=== PATIENT | male | born 1985 | race Caucasian/White ===

== ENCOUNTER → 2016-11-05 | Outpatient (CLI) | payer BC ==
[~2016-11-05] MED LIST: ATOR-22 PO; HYDR-5688 PO; IBUP-103 PO; INSU1.2I SQ; INSU100I17 SC; INSU100I2 SC; INSU1INJ7 SC; OXYC-57 PO; PRED20TA PO
[2016-11-05 17:41] LABS: HEMATOCRIT 45.5 % (42-52)
[2016-11-05 18:14] LABS: ALT/SGPT 25 U/L (12-78); BLOOD UREA NITROGEN 10 mg/dl (7-18); BUN/CREATININE RATIO 11.6 (10-20); CALCIUM 9.5 mg/dl (8.5-10.1); CARBON DIOXIDE 30 mmol/L (21-32); CHLORIDE 103 mmol/L (98-107); CHOLESTEROL 258 mg/dl (0-200); CREATININE 0.89 mg/dl (0.60-1.40); GLUCOSE 117 mg/dl (70-99); POTASSIUM 3.6 mmol/L (3.5-5.1); SODIUM 142 mmol/L (136-145)
[2016-11-05 18:23] LABS: RATIO 28.6 mcg/mg (0-30.0)
[2016-11-05 18:25] LABS: ALKALINE PHOSPHATASE 113 U/L (45-117); AST/SGOT 18 U/L (15-37); CHOLESTEROL/HDL RATIO 4.6; HDL CHOLESTEROL 56 mg/dl; LDL CHOLESTEROL CALCULATED 131 mg/dl; TRIGLYCERIDES 355 mg/dl (0-150); VERY LOW DENSITY LIPOPROT CALC 71 mg/dl
[2016-11-06 06:01] LABS: ESTIMATED AVERAGE GLUCOSE 229 mg/dl; HA1C FLAG Normal (Normal)
== END | disposition home or self-care (01) ==
LOC: C.LAB1850 17:23
PROVIDERS: ATTEND Nurse Practitioner Family
DX: E10.39 Type 1 diabetes mellitus with other diabetic ophthalmic complication (principal)

== ENCOUNTER 2016-11-14 13:48 | Emergency (ER) | payer BC, OTHER ==
[~2016-11-14] VITALS: Ht 185.4 cm; Wt 122.0 kg
[~2016-11-14 13:48] MED LIST changes: -ATOR-22 PO; -HYDR-5688 PO; -IBUP-103 PO; -INSU1.2I SQ; -INSU100I2 SC; -OXYC-57 PO; -PRED20TA PO
[2016-11-14 13:50] VITALS: BP 158/98; PULSE 110; TEMP 36.8; O2SAT 99; Ht 185.4 cm; Wt 122.0 kg
[2016-11-14] MEDS ORDERED: IBUP-103 PO (14:32)
[2016-11-14] MEDS ORDERED: OXYC-57 PO (15:11)
--- NOTE | 2016-11-15 10:51 | EMERGENCY ROOM VISIT NOTE ---
ED Visit Note First contact with patient: 14:02 Chief Complaint: Lower back pain. History of Present Illness: Mr. Dominguez is a 31-year-old white male who ambulates into the ED accompanied by his complaining of lumbar back. Historically patient reports he's had previous lumbar disc disease. Was most severe approximately 3-4 years ago and he received multiple injections of steroids and had resolution of his symptoms. He reports he was told that his disc disease was mild and that surgery was not indicated at that time. Patient reports approximately 2-3 hours before he arrived in the emergency department patient reports he was bending over to put on his shoes, felt a popping sensation in his lower back and since that time he has been having severe pain. Currently he describes the pain as a sharp and grabbing sensation. He places the majority of his discomfort in the L2 L4 area. He reports there is minimal radiation to the top of the buttocks bilaterally but slightly more pronounced in the right. He rates his discomfort 9/10. His pain worsens with all movements of the back and minimally with palpation. He has not identified any alleviating factors related to the pain. He has not taken any medications for pain prior to arrival at the hospital. He denies any associated symptoms including fevers, chills, sweats, upper respiratory tract symptoms, shortness of breath, cervical and thoracic back pain, flank pain, abdominal pain, nausea, vomiting, diarrhea, constipation, rectal bleeding, black/tarry stools, urinary symptoms, hematuria, bowel and bladder dysfunction, genital/rectal paresthesias , lower extremity weakness/numbness/tingling. Review of Systems: As noted above in history of present illness. All body systems were reviewed and found to be negative as noted above. Past Medical History: As previously noted, diabetes. Current Medications: Insulin, ibuprofen. Allergies to Medications: Patient denies. Social History: Patient is currently employed; he lives with his and feels safe in his home environment; he denies tobacco and alcohol use. Physical Examination: Vital Signs: Date Time Temp Pulse Resp B/P Pulse Ox O2 Delivery O2 Flow Rate FiO2 11/14/16 13:50 36.8 110 18 158/98 99 Room Air GENERAL: 31-year-old male in moderate distress due to pain, nontoxic-appearing, afebrile and hemodynamically stable. NEUROLOGICAL: Awake, alert and oriented to person, place and time. Answering questions appropriately and following commands. Normal gait. Good hand eye coordination. No focal motor sensory deficits. SKIN: Warm, dry and pink. No soft tissue eruptions or trauma noted. HEENT: Atraumatic and normocephalic. BACK: No tenderness over the bony cervical and thoracic spine. Moderate tenderness over the L2 to L4 area with prominence in the right paraspinous musculature but no palpable spasm. Decreased range of motion in all movements due to pain. Negative straight leg raise test. No CVA tenderness. THORAX: Lungs sounds are clear to auscultation and equal bilaterally with symmetrical chest wall. ABDOMEN: Flat, soft and nontender. Positive bowel sounds in all quadrants. No guarding, rigidity or organomegaly. EXTREMITIES: Moves all extremities well on command and with purpose. All distal neurovascular statuses are intact and equal bilaterally. 4/5 muscle strength in hip flexion, extension, abduction and abduction, knee flexion and extension and ankle plantar flexion and dorsiflexion. 2+ patellar and Achilles tendon reflexes intact and equal bilaterally. Able to distinguish light sensations through all dermatomes of the lower legs and feet. ED Course: Patient is assessed as noted above. Patient was educated about today's findings and instructed on his plan; he verbalizes understanding and agreement with this plan. Clinical Impression: Acute lumbar back pain. Disposition: Patient discharged home in stable condition accompanied by his ; prior to departure he was reassessed and subjectively reported he was feeling better and rated his discomfort 5/10. Plan: Comfort measures were discussed with the patient including rest, avoiding heavy lifting, ice/heat and a sliding pain medication scale of ibuprofen, acetaminophen and/or Percocet. Patient was signed off of work for 2-3 days. Patient was encouraged to follow-up with his back specialist or family physician for recheck. Patient was encouraged return ED for worsening pain, fevers, lower extremity weakness/numbness/tingling, rectal/genital paresthesias, bowel and bladder dysfunction or any new/concerning symptoms.
[2017-03-18] MEDS ORDERED: INSU1.2I SQ (14:32)
== END 2016-11-14 15:19 | disposition home or self-care (01) ==
LOC: C.EDB 13:50 → C.EDD 15:19
DX: M54.5 Low back pain (principal); E11.9 Type 2 diabetes mellitus without complications; Z79.4 Long term (current) use of insulin

== ENCOUNTER 2017-03-18 17:17 | Emergency (ER) | payer BC, OTHER ==
[~2017-03-18] VITALS: Ht 182.9 cm; Wt 113.6 kg
[~2017-03-18 17:17] MED LIST changes: +IBUP-103 PO; +INSU1.2I SQ; -INSU1INJ7 SC; +OXYC-57 PO
[2017-03-18 17:20] VITALS: TEMP 36.6; Ht 182.9 cm; Wt 113.6 kg
[2017-03-18] MEDS ORDERED: ATOR-22 PO (17:44)
[2017-03-18] MEDS ORDERED: INSU100I2 SC (17:44)
[2017-03-18] MEDS ORDERED: MoRPHine SULFATE 10 MG/ML CARP/VIAL IM STA (17:51)
[2017-03-18] MEDS ORDERED: DEXAMETHASONE SOD INJ 4 MG/ML VIAL IM ONE (18:00)
[2017-03-18] MEDS ORDERED: HYDR-5688 PO (18:10)
[2017-03-18] MEDS ORDERED: PRED20TA PO (18:10)
--- NOTE | 2017-03-18 18:12 | EMERGENCY ROOM VISIT NOTE ---
ED Visit Note First contact with patient: 17:32 CHIEF COMPLAINT: Low back pain HISTORY OF PRESENT ILLNESS: This 31-year-old male patient presents to the emergency department ambulatory complaining of pain in the low back which began 5 days ago. The patient states that he does have a history of low back problems. A few years ago, he had an MRI which showed a bulging disc at L4 to L5. He saw Dr. Vu, who gave him a steroid injection which gave him excellent pain relief. He has been having some mild pain over the past several months but states that he bent over on and had an acute onset of severe pain. The pain was gradual in onset, is now constant and worse with movement. The patient notes the pain as achy and a 9/10. The pain radiates slightly into the left leg. The patient has taken ibuprofen and has been resting without relief of the pain. The patient denies any loss of control of their bowel or bladder functions. There has been no leg numbness or weakness, and no change in sensation. No nausea or vomiting or abdominal pain. No chest pain or shortness of breath. No dysuria or increased urinary frequency. REVIEW OF SYSTEMS: A review of systems was performed with positives and pertinent negatives listed in the history of present illness. All other systems were reviewed and are negative. ALLERGIES: No known drug allergies MEDICATIONS: Lipitor, insulin PMH: Type 1 diabetes SOCIAL HISTORY: Patient lives locally with family. Nonsmoker, denies alcohol use. PHYSICAL EXAM: VITALS: Vitals are noted on the nurse's note and reviewed by myself. Vital signs stable. GENERAL: This is a 31-year-old male, in no acute distress, nondiaphoretic, well- developed well-nourished. SKIN: The skin was without rashes, erythema, edema, or bruising. Capillary refill less than 2 seconds. NECK: Supple without nuchal rigidity. No cervical spine tenderness. No paraspinous muscle tenderness. HEART: Regular rate and rhythm without murmurs gallops or rubs. LUNGS: Clear to auscultation bilaterally without wheezes, rales or rhonchi. ABDOMEN: Positive bowel sounds x 4. Soft, nontender, without masses or organomegaly. MUSCULOSKELETAL: No muscle atrophy, erythema, or edema noted of the back. There is no tenderness over the lumbar spinous processes. There is tenderness over the left lumbar paraspinous muscles. There is no tenderness over the thoracic spine or paraspinous muscles. There are no muscle spasms present. The patient is slow to move around with maximum tenderness with flexion. Negative straight leg raise test. NEURO: Patient was alert and oriented to person place and time. Normal sensation to light and sharp touch. Deep tendon reflexes 2+ in the lower extremities. Dorsalis pedis pulse 2+ bilaterally. Strength 5/5 and equal in the bilateral lower extremities. EMERGENCY DEPARTMENT COURSE: The patient was evaluated as above. He has a history of back pain and has had an MRI in the past which showed disc herniation at L4 to L5. The patient has no symptoms concerning for cauda equina syndrome or cord compression. There is no evidence of infection or malignancy. I do not feel any further imaging is indicated at this time. The patient was given 10 mg Decadron IM and 10 mg morphine IM. He will be placed on a prednisone taper and given a short course of pain medication. [facility] and no red flags were identified. The patient has a follow-up appointment with pain management in 2 months. I did recommend that he call and see if he can get an earlier appointment. He verbalized his understanding of my assessment and treatment plan and was discharged home in good condition with his driving. DIAGNOSIS: Left lumbar back pain Problem List Medical Problems: (1) Diabetes Status: Chronic (2) Hypoglycemia associated with type 2 diabetes mellitus Status: Resolved (3) TIA (transient ischemic attack) Status: Resolved Current/Historical Medications Scheduled Atorvastatin (Lipitor), 20 MG PO DAILY Insulin Glargine (Toujeo Solostar), 40 UNIT SQ HS Insulin Lispro (Human) (Humalog Kwikpen), 1 DOSE SC ACHS Allergies Coded Allergies: No Known Allergies (Unverified , 06/06/15) Vital Signs Date Time Temp Pulse Resp B/P Pulse Ox O2 Delivery O2 Flow Rate FiO2 03/18/17 17:20 36.6 109 18 146/85 98 Room Air Departure Information Impression Primary Impression: Left lumbar pain Dispostion Home / Self-Care Condition GOOD Prescriptions Hydrocodone/Acetaminophen 5MG/325MG ([place] 5MG/325MG) Tab 1-2 TABLET PO Q4H Y for Pain, #10 TAB For Initial Treatment Prov: Lolly Covarrubias ., GALINDO 03/18/17 Prednisone (Prednisone) 20 Mg Tab 0 PO DAILY, #18 TAB 3 DAILY FOR 3 DAYS, THEN 2 DAILY FOR 3 DAYS, THEN 1 DAILY FOR 3 DAYS. Prov: Lolly Covarrubias .GALINDO 03/18/17 Referrals Chadwick Bustamante M.D. (PCP) Patient Instructions My [facility] Additional Instructions You have been treated in the Emergency Department for Back Pain. You have received pain medicine in the emergency department which impairs your ability to operate a vehicle. It is illegal for you to drive after receiving these medicines. You have been prescribed [place] to be used for pain control. This is a narcotic medication. You cannot drive or consume alcohol while on this medicine. This medicine should only be used for pain that cannot be controlled with over-the- counter pain medicines. Prednisone as prescribed. Start this medication tomorrow morning. You may want to take this in the morning, as it can make it difficult to sleep. For pain control, you can use the following [id number] medicines (if >12 yo): - Regular strength (325mg/tab) Tylenol (acetaminophen) 2 tabs every 4-6 hours as needed. Do not exceed 12 tablets in a 24 hour period. Avoid taking more than 4 grams (4000 mg) of Tylenol per day. This includes any other sources of acetaminophen you may take on a regular basis. - Regular strength (200 mg/tab) Advil (ibuprofen) 1-2 tabs every 4-6 hours as needed. Do not exceed a dose of 3200 mg per day. If this is an acute injury, ice can be applied to the area of pain for the first 3 days to help decrease pain and inflammation. After the first 3 days, a heating pad can be used over the area for continued soothing relief. Call Dr. Vu for follow up. You may also follow up with your primary care provider. Return to the Emergency Department if your current symptoms worsen despite treatment course outlined above, or if you develop any of the following symptoms : intractable pain despite aforementioned treatment course, loss of control of your bowel or bladder, numbness or tingling in your groin, or development of a fever. Problem Qualifiers Primary Impression: Left lumbar pain Chronicity: acute Sciatica presence: with sciatica Sciatica laterality: sciatica of left side Qualified Codes: M54.42 - Lumbago with sciatica, left side
[2017-03-18 18:22] VITALS: BP 131/87; PULSE 75; O2SAT 99
== END 2017-03-18 18:23 | disposition home or self-care (01) ==
LOC: C.EDB 17:18 → C.EDD 18:23
DX: M54.42 Lumbago with sciatica, left side (principal); M51.26 Other intervertebral disc displacement, lumbar region; E10.9 Type 1 diabetes mellitus without complications; Z79.4 Long term (current) use of insulin; Z86.73 Personal history of transient ischemic attack (TIA), and cerebral infarction without residual deficits

== ENCOUNTER → 2017-07-03 | Day surgery (SDC) | payer BC ==
[2017-06-09 07:54] VITALS: Ht 182.9 cm; Wt 122.7 kg
[~2017-07-03] VITALS: Ht 182.9 cm; Wt 122.7 kg
[~2017-07-03] MED LIST changes: +ATOR-22 PO; -IBUP-103 PO; -INSU100I17 SC; +INSU100I2 SC; +IOPAMIDOL INJ 61% 15 ML VIAL ONE; +LIDOCAINE HCL 1% MPF 5 ML VIAL ONE; -OXYC-57 PO; +SODIUM CHLORIDE 0.9% INJ 10 ML VIAL ONE
--- NOTE | 2017-07-03 12:48 | History & Physical Bridge - SC ---
H&P Re-Evaluation Bridge Note: I have examined the patient, reviewed the History & Physical and in the interval since the performance of the History & Physical I have noted the following changes of clinical significance: No changes noted
[2017-07-03 13:12] VITALS: TEMP 36.9
--- NOTE | 2017-07-03 13:17 | Discharge Instructions ---
Discharge Instructions Date of Service Jul 03, 2017. Visit Reason for Visit: Lumbar Radiculopathy Discharge Discharge Diagnosis / Problem: left leg pain Discharge Goals Goal(s): Decrease discomfort, Improve function Activity Recommendations Activity Limitations: resume your previous activity Anesthesia . Post Anesthesia Instructions: If you have had General Anesthesia or IV Sedation: * Do not drive today. * Resume driving when surgeon permits. * Do not make important decisions or sign legal documents today. * Call surgeon for: 1. Temperature elevations greater than 101 degrees F. 2. Uncontrollable pain. 3. Excessive bleeding. 4. Persistent nausea and vomiting. 5. Medication intolerance (nausea, vomiting or rash). * For nausea and vomiting use only clear liquids such as: tea, soda, bouillon until nausea subsides, then gradually increase diet as tolerated. * If you have any concerns or questions, call your surgeon's office. If physician is unavailable and it is an emergency, call 911 or go to the nearest emergency room. . Diet Recommendations Recommended Home Diet: resume previous diet Procedures Procedures Performed: LUMBAR EPIDURAL STEROID INJECTION Pending Studies Studies pending at discharge: no Medical Emergencies . Who to Call and When: Medical Emergencies: If at any time you feel your situation is an emergency, please call 911 immediately. . Non-Emergent Contact Non-Emergency issues call your: Specialist . . "Provider Documentation" section prepared by Karl Vu. .
[2017-07-03 13:19] VITALS: BP 147/90; PULSE 93; O2SAT 98
--- NOTE | 2017-07-03 14:08 | OPERATIVE REPORT ---
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 POSTOPERATIVE DIAGNOSIS: Same. PROCEDURE: Left paramedian L5-S1 intralaminar epidural steroid injection under fluoroscopic guidance. SURGEON: Dr. Karl Vu. INDICATIONS: The patient is a 32-year-old white male who underwent a series of 2 epidural steroid injections 4 years ago for radicular complaints. He has done well up until just recently when he began having recurrence. He presents today for an epidural injection as he is having increasing pain down the left lower extremity and had previously had a nice response historically to an epidural injection. PHYSICAL EXAMINATION: GENERAL: Pleasant male seated comfortably in no apparent distress. MUSCULOSKELETAL EXAMINATION: Sensitivity to palpation of lumbar paraspinal muscles on the left side. Sciatic notch sensitivity on the left, extreme limitations with forward flexion. Positive straight leg raise with pain inhibition in the left lower extremity, intact sensation. CONSENT: Verbal and written consent was obtained from the patient. Risks and benefits were reviewed. Risks include but are not limited to abscess, allergic reaction and dural spinal headache. The patient wishes to proceed. PROCEDURE: The patient was taken back to the special procedures room of the [facility] where he was maintained in a prone position. Backside was cleansed with Betadine x3 and a dry sterile dressing was applied. Fluoroscope was used to identify the L5-S1 intralaminar space and overlying skin on the left side was anesthetized with 4 mL of lidocaine 1% with a 25 gauge 1.5-inch needle. A 22-gauge 3-1/2 inch Tuohy needle was then directed down towards the intralaminar space. It was advanced under lateral fluoroscopic guidance and loss of resistance was noted at a depth of 8.5 cm. Isovue-300 contrast 1 mL was injected in which demonstrated epidural uptake pattern. He then underwent injection after negative aspiration of 40 mg of Depo-Medrol and 4 mL of preservative free sodium chloride. Injection was well tolerated. DISPOSITION: 1. The patient is taken out into the discharge recovery area where he will be discharged home once discharge criteria have been met. 2. Follow up in the [facility] office in 2-4 weeks. I attest to the content of the Intraoperative Record and any orders documented therein. Any exception s are noted below.
== END | disposition home or self-care (01) ==
LOC: X.SURG 12:04
PROVIDERS: ATTEND Physical Medicine & Rehabilitation
DX: M54.18 Radiculopathy, sacral and sacrococcygeal region (principal); E11.9 Type 2 diabetes mellitus without complications; E78.5 Hyperlipidemia, unspecified; Z79.4 Long term (current) use of insulin; Z82.49 Family history of ischemic heart disease and other diseases of the circulatory system; Z83.3 Family history of diabetes mellitus

== ENCOUNTER 2018-01-23 07:43 | Emergency (ER) | payer BC, OTHER ==
[~2018-01-23] VITALS: Ht 175.3 cm; Wt 121.0 kg
[~2018-01-23 07:43] MED LIST changes: -IOPAMIDOL INJ 61% 15 ML VIAL ONE; -LIDOCAINE HCL 1% MPF 5 ML VIAL ONE; -SODIUM CHLORIDE 0.9% INJ 10 ML VIAL ONE
[2018-01-23 07:45] VITALS: Ht 175.3 cm; Wt 121.0 kg
[2018-01-23] MEDS ORDERED: SODIUM CHLORIDE 0.9% 1000ML 1,000 ML IV STA (08:00)
--- NOTE | 2018-01-23 08:06 | EMERGENCY ROOM VISIT NOTE ---
History First contact with patient: 07:53 Chief Complaint: BACK PAIN Stated Complaint: LOWER BACK PAIN/ RIGHT SIDE History of Present Illness The patient is a 32 year old male who presents to the Emergency Room via private vehicle accompanied by female with complaints of "lower back pain/right side". The patient states that he woke this morning around 03 30 with abrupt onset of right flank pain. He rates the overall pain currently as a 7/10 but notes at times it will be more severe. He has never had pain like this before. He states that he does have a history of herniated disks at L4-L5 which she was diagnosed with 5-7 years ago. He states that he follows with Dr. Vu and had last received an injection this past summer. This was his third overall injection. He states that the pain is now persistent on the right and is slightly nauseous and has diarrhea but notes this began on Friday and appears to be unrelated. The only episode of incontinence via stool was on Friday when the diarrhea was severe which is now diminishing. He denies any abdominal pain , dysuria, lower extremity weakness, bowel or bladder incontinence today, or numbness or tingling in the genital region. In regard to location of pain he points to the right flank at the right posterior inferior rib cage region. Review of Systems A complete 10-point Review of Systems was discussed with the patient, with pertinent positives and negatives listed in the History of Present Illness. All remaining Review of Systems questions can be considered negative unless otherwise specified. Past Medical/Surgical History Medical Problems: (1) Diabetes (2) Hypoglycemia associated with type 2 diabetes mellitus (3) TIA (transient ischemic attack) Family History Diabetes mellitus Social History Smoking Status: Never Smoker Marital Status: Housing Status: lives with family Occupation Status: employed Current/Historical Medications Scheduled Atorvastatin (Lipitor), 20 MG PO HS Insulin Aspart (Novolog), UNITS SQ UD Insulin Degludec (Tresiba Flextouch), 40 UNITS SQ HS Scheduled PRN Oxycodone Ir (Roxicodone Ir), 1-2 TAB PO Q4H PRN for Pain Physical Exam Vital Signs Date Time Temp Pulse Resp B/P (MAP) Pulse Ox O2 Delivery O2 Flow Rate FiO2 01/23/18 10:18 36.5 81 18 170/112 99 01/23/18 09:36 164/95 01/23/18 09:33 81 18 186/116 99 Room Air 01/23/18 07:45 36.5 86 18 162/101 98 Room Air Physical Exam VITAL SIGNS - Vital signs and nursing notes were reviewed. Stable. GENERAL - 32-year-old male appearing his stated age who is in no acute distress. Communicates well with provider and answers questions appropriately. SKIN - Without rashes. No meningeal or petechial rash. HEAD - NC/AT. EYES - PERRL with EOMI bilaterally. Sclera anicteric. EARS - No deformities of external structures noted on gross examination bilaterally. NOSE - Midline and without cyanosis. No epistaxis or purulent drainage noted. MOUTH/OROPHARYNX - Without perioral cyanosis. NECK - Neck with FROM. LUNGS - Chest wall symmetric without accessory muscle use, intercostals retractions, or central cyanosis. Normal vesicular breath sounds CTA B/L. No wheezes, rales, or rhonchi appreciated. CARDIAC - RRR with S1/S2. No murmur, rubs, or gallops appreciated. ABDOMEN - Abdominal contour normal without pulsations or visible masses. BS normoactive all four quadrants. No tenderness, palpable masses, hepatosplenomegaly, or ascites noted. MUSCULOSKELETAL: There is tenderness to palpation/CVA tenderness of the right flank. EXTREMITIES - No clubbing or peripheral cyanosis. No pretibial edema present. + 5/5 strength noted in UE/LE bilaterally. NEUROLOGIC - Cranial nerves II through XII grossly intact. Sensory intact to light touch throughout. PSYCH - A&O, and cooperates fully with examiner. Pt is very pleasant and interacts well with examiner. Medical Decision & Procedures ER Provider Diagnostic Interpretation: ABDOMEN AND PELVIS CT WITHOUT CONTRAST CT DOSE: 8.85 mGy.cm HISTORY: abrupt onset of R flank pain TECHNIQUE: Multiaxial CT images of the abdomen and pelvis were performed without the use of intravenous and oral contrast according to the standard department stone protocol. A dose lowering technique was utilized adhering to the principles of ALARA. COMPARISON STUDY: Abdomen and pelvis CT 01/20/2012. FINDINGS: The lung bases are clear. No pneumoperitoneum. No pneumatosis. No fractures within the visualized osseous structures. The unenhanced liver, spleen, adrenal glands, gallbladder, and pancreas are unremarkable. Multiple bilateral renal calculi. The largest is seen within the lower pole of the left kidney and measures 5 mm. There is a 1 mm stone either within or just beyond the right ureterovesical junction best seen on image 194. This results in mild right hydroureteronephrosis. There is also mild right perinephric and periureteral edema which is likely reactive. No retroperitoneal lymphadenopathy. No bladder wall thickening. Colonic diverticulosis. No bowel wall thickening or obstruction. Normal appendix. IMPRESSION: 1. A 1 mm stone either within or just beyond the right ureterovesical junction resulting in mild right hydroureteronephrosis. 2. Bilateral nephrolithiasis. Electronically signed by: Enoch Daigle M.D. 01/23/2018 8:47 AM Dictated Date/Time: 01/23/2018 8:42 AM Laboratory Results 01/23/18 08:13 Red Blood Count 5.51, Mean Corpuscular Volume 82.2, Mean Corpuscular Hemoglobin 28.7, Mean Corpuscular Hemoglobin Concent 34.9, Mean Platelet Volume 10.2, Neutrophils (%) (Auto) 66.4, Lymphocytes (%) (Auto) 23.6, Monocytes (%) (Auto) 6.8, Eosinophils (%) (Auto) 2.2, Basophils (%) (Auto) 0.9, Neutrophils # (Auto) 5.21, Lymphocytes # (Auto) 1.85, Monocytes # (Auto) 0.53, Eosinophils # (Auto) 0.17, Basophils # (Auto) 0.07 01/23/18 08:13 Test 01/23/18 08:13 White Blood Count 7.84 K/uL (4.8-10.8) Red Blood Count 5.51 M/uL (4.7-6.1) Hemoglobin 15.8 g/dL (14.0-18.0) Hematocrit 45.3 % (42-52) Mean Corpuscular Volume 82.2 fL (80-100) Mean Corpuscular Hemoglobin 28.7 pg (25-34) Mean Corpuscular Hemoglobin Concent 34.9 g/dl (32-36) Platelet Count 365 K/uL (130-400) Mean Platelet Volume 10.2 fL (7.4-10.4) Neutrophils (%) (Auto) 66.4 % Lymphocytes (%) (Auto) 23.6 % Monocytes (%) (Auto) 6.8 % Eosinophils (%) (Auto) 2.2 % Basophils (%) (Auto) 0.9 % Neutrophils # (Auto) 5.21 K/uL (1.4-6.5) Lymphocytes # (Auto) 1.85 K/uL (1.2-3.4) Monocytes # (Auto) 0.53 K/uL (0.11-0.59) Eosinophils # (Auto) 0.17 K/uL (0-0.5) Basophils # (Auto) 0.07 K/uL (0-0.2) RDW Standard Deviation 37.8 fL (36.4-46.3) RDW Coefficient of Variation 12.5 % (11.5-14.5) Immature Granulocyte % (Auto) 0.1 % Immature Granulocyte # (Auto) 0.01 K/uL (0.00-0.02) Urine Color YELLOW Urine Appearance CLEAR (CLEAR) Urine pH 5.5 (4.5-7.5) Urine Specific [place] 1.045 (1.000-1.030) Urine Protein TRACE (NEG) Urine Glucose (UA) 3+ (NEG) Urine Ketones TRACE (NEG) Urine Occult Blood 3+ (NEG) Urine Nitrite NEG (NEG) Urine Bilirubin NEG (NEG) Urine Urobilinogen NEG (NEG) Urine Leukocyte Esterase NEG (NEG) Urine WBC (Auto) 1-5 /hpf (0-5) Urine RBC (Auto) >30 /hpf (0-4) Urine Hyaline Casts (Auto) 1-5 /lpf (0-5) Urine Epithelial Cells (Auto) 0-5 /lpf (0-5) Urine Bacteria (Auto) NEG (NEG) Anion Gap 9.0 mmol/L (3-11) Est Creatinine Clear Calc Drug Dose 105.8 ml/min Estimated GFR () 84.3 Estimated GFR (Non- 72.7 BUN/Creatinine Ratio 12.8 (10-20) Calcium Level 9.5 mg/dl (8.5-10.1) Total Bilirubin 0.3 mg/dl (0.2-1) Aspartate Amino Transf (AST/SGOT) 36 U/L (15-37) Alanine Aminotransferase (ALT/SGPT) 41 U/L (12-78) Alkaline Phosphatase 124 U/L (45-117) Total Protein 8.2 gm/dl (6.4-8.2) Albumin 4.0 gm/dl (3.4-5.0) Globulin 4.2 gm/dl (2.5-4.0) Albumin/Globulin Ratio 0.9 (0.9-2) Beta-Hydroxybutyric Acid mg/dL (0.2-2.81) Chemistry Specimen Hemolysis Medications Administered Medications (Trade) Dose Ordered Sig/Tal Route Start Time Stop Time Status Last Admin Dose Admin Sodium Chloride 1,000 ml @ 999 mls/hr Q1H1M STAT IV 01/23/18 08:00 01/23/18 09:00 DC 01/23/18 08:23 999 MLS/HR Insulin Human Regular (novoLIN-R U-100 PER UNIT) 5 units NOW STAT IV 01/23/18 09:04 01/23/18 09:05 DC 01/23/18 09:28 5 UNITS Medical Decision Patient was seen and evaluated as above in room A4. He declined pain medication. He has right flank pain. Review was performed of nursing notes and vital signs. After obtaining a thorough history and physical examination the above work up was performed. CT scan was obtained of the abdomen and pelvis without CT contrast to evaluate for stone. 1 mm stone noted quite distal in the urine system. I suspect he will pass this without difficulty. He will be given a short course of pain medication at home to help with the pain he might be experiencing secondary to the irritation. He is to strain all urine. There is no concerning leukocytosis or anemia here. Metabolic panel does reveal however elevated glucose. He notes he did not take his insulin this morning. He is a type I diabetic. I did give him 5 units of regular insulin here IV and he was reevaluated and the glucose was trending down. He is to continue to monitor and titrate this. He is to follow with urology as he does have pending stones and will likely also try to pass. He is also follow with the family doctor. He is to return with worsening. The patient was educated upon management, had questions answered prior to discharge, and was discharged home in good condition. No red flags in the [place] drug monitoring system. No vomiting or evidence of DKA on exam. Case was discussed with the attending physician. In the evaluation and treatment of this patient the following differential diagnoses were obtained: Renal calculi, pyelonephritis, UTI, appendicitis, diverticulitis, gallbladder etiology, among others. Impression Primary Impression: Acute flank pain Additional Impression: uvj stone, 1mm Departure Information Dispostion Home / Self-Care Condition GOOD Prescriptions Oxycodone Ir (Roxicodone Ir) 5 Mg Tab 1-2 TAB PO Q4H Y for Pain, #15 TAB For Initial Treatment Prov: Justin Zepeda PA-C 01/23/18 Referrals Chadwick Bustamante M.D. (PCP) Johan Granda II., DO Patient Instructions [facility] Additional Instructions You have been treated in the Emergency Department today for a right sided pain which was likely from a Kidney Stone (Nephrolithiasis). You have been prescribed Oxy IR to be used for pain control. This is a narcotic medication. You cannot drive or consume alcohol while on this medicine. This medicine should only be used for pain that cannot be controlled with over-the- counter pain medicines. For pain control, you can use the following [id number] medicines: - Regular strength (325mg/tab) Tylenol (acetaminophen) 2 tabs every 4-6 hours as needed. Do not exceed 12 tablets in a 24 hour period. Avoid taking more than 3 grams (3000 mg) of Tylenol per day. This includes any other sources of acetaminophen you may take on a regular basis. - Regular strength (200 mg/tab) Advil (ibuprofen) 1-2 tabs every 4-6 hours as needed. Do not exceed a dose of 3200 mg per day. (Please be careful with NSAIDS in regard to kidney health) You have been provided a strainer and specimen collection cup. You should strain your urine to collect any passed stones. Your stones can be placed into the specimen cup and taken to your Urologist for further evaluation. You have been provided the contact information for the on-call Urologist. You should contact the Urologist's office tomorrow to establish a follow-up appointment from today's Emergency Department visit. Return to the Emergency Department if your symptoms persist despite the treatment plan outlined above or if you develop the following symptoms: intractable pain, fever, chills, or large amounts of blood in your urine. Problem Qualifiers
[2018-01-23 08:28] LABS: BASO % 0.9 %; BASO ABS # 0.07 K/uL (0-0.2); EOS % 2.2 %; EOS ABS # 0.17 K/uL (0-0.5); HEMATOCRIT 45.3 % (42-52); HEMOGLOBIN 15.8 g/dL (14.0-18.0); IG# 0.01 K/uL (0.00-0.02); LYMPH % 23.6 %; LYMPH ABS # 1.85 K/uL (1.2-3.4); MEAN CELL VOLUME 82.2 fL (80-100); MEAN CORPUSCULAR HEMOGLOBIN 28.7 pg (25-34); MEAN CORPUSCULAR HGB CONC 34.9 g/dl (32-36); MEAN PLATELET VOLUME 10.2 fL (7.4-10.4); MONO % 6.8 %; MONO ABS # 0.53 K/uL (0.11-0.59); NEUT % 66.4 %; NEUT ABS # 5.21 K/uL (1.4-6.5); PLATELET COUNT 365 K/uL (130-400); RED CELL DISTRIBUTION WIDTH CV 12.5 % (11.5-14.5); RED CELL DISTRIBUTION WIDTH SD 37.8 fL (36.4-46.3); WHITE BLOOD COUNT 7.84 K/uL (4.8-10.8)
--- NOTE | 2018-01-23 08:48 | DIAGNOSTIC IMAGING REPORT ---
ABDOMEN AND PELVIS CT WITHOUT CONTRAST CT DOSE: 2028.85 mGy.cm HISTORY: abrupt onset of R flank pain TECHNIQUE: Multiaxial CT images of the abdomen and pelvis were performed without the use of intravenous and oral contrast according to the standard department stone protocol. A dose lowering technique was utilized adhering to the principles of ALARA. COMPARISON STUDY: Abdomen and pelvis CT 01/20/2012. FINDINGS: The lung bases are clear. No pneumoperitoneum. No pneumatosis. No fractures within the visualized osseous structures. The unenhanced liver, spleen, adrenal glands, gallbladder, and pancreas are unremarkable. Multiple bilateral renal calculi. The largest is seen within the lower pole of the left kidney and measures 5 mm. There is a 1 mm stone either within or just beyond the right ureterovesical junction best seen on image 194. This results in mild right hydroureteronephrosis. There is also mild right perinephric and periureteral edema which is likely reactive. No retroperitoneal lymphadenopathy. No bladder wall thickening. Colonic diverticulosis. No bowel wall thickening or obstruction. Normal appendix. IMPRESSION: 1. A 1 mm stone either within or just beyond the right ureterovesical junction resulting in mild right hydroureteronephrosis. 2. Bilateral nephrolithiasis. Electronically signed by: Enoch Daigle M.D. 01/23/2018 8:47 AM Dictated Date/Time: 01/23/2018 8:42 AM
[2018-01-23 08:55] LABS: CALCIUM 9.5 mg/dl (8.5-10.1); CREATININE 1.3 mg/dl (0.60-1.40); POTASSIUM 3.9 mmol/L (3.5-5.1); TOTAL PROTEIN 8.2 gm/dl (6.4-8.2)
[2018-01-23] MEDS ORDERED: NVLG SQ (08:56)
[2018-01-23] MEDS ORDERED: INSU1INJ33 SQ (08:56)
[2018-01-23] MEDS ORDERED: NovoLIN-R INSULIN PER UNIT CHARGE IV STA (09:04)
[2018-01-23] MEDS ORDERED: OXYC1TAB3 PO (09:17)
[2018-01-23 10:18] VITALS: BP 170/112; PULSE 81; TEMP 36.5; O2SAT 99
== END 2018-01-23 10:15 | disposition home or self-care (01) ==
LOC: C.EDB 07:45 → C.EDA 10:15
DX: R10.9 Unspecified abdominal pain (principal); N21.8 Other lower urinary tract calculus; E11.9 Type 2 diabetes mellitus without complications; Z86.73 Personal history of transient ischemic attack (TIA), and cerebral infarction without residual deficits; Z83.3 Family history of diabetes mellitus; Z79.4 Long term (current) use of insulin

== ENCOUNTER 2019-11-04 17:35 | Inpatient (IN) ==
[2019-11-04] MEDS ORDERED: ONDANSETRON INJ 2 MG/ML 2 ML VIAL IV STA (17:58)
[2019-11-04] MEDS ORDERED: HYDROmorphone INJ 0.5 MG/0.5 ML SYR IV STA ×2 (17:58→19:02)
[2019-11-04] MEDS ORDERED: SODIUM CHLORIDE 0.9% 1000ML 1,000 ML IV SCH (18:00)
[2019-11-04 18:37] LABS: Basophils # (auto) 0.06 K/uL (0-0.2); Basophils % (auto) 0.5 %; Eosinophils # (auto) 0.38 K/uL (0-0.5); Eosinophils % (auto) 3.2 %; Hematocrit (blood only) 39.9 % (42-52); Hemoglobin 13.5 g/dL (14.0-18.0); Immature Granulocytes # (auto) 0.02 K/uL (0.00-0.02); Immature Granulocytes % (auto) 0.2 %; Lymphocytes # (auto) 1.62 K/uL (1.2-3.4); Lymphocytes % (auto) 13.7 %; Mean Corpuscular Hemoglobin 28.9 pg (25-34); Mean Corpuscular Hgb Conc 33.8 g/dL (32-36); Mean Corpuscular Volume 85.4 fL (80-100); Monocytes # (auto) 0.99 K/uL (0.11-0.59); Monocytes % (auto) 8.4 %; Neutrophils # (auto) 8.73 K/uL (1.4-6.5); Platelet Count 282 K/uL (130-400); RDW Coefficient of Variation 12.8 % (11.5-14.5); RDW Standard Deviation 39.6 fL (36.4-46.3); Red Blood Count 4.67 M/uL (4.7-6.1)
--- NOTE | 2019-11-04 18:53 | XRay Report ---
XR KUB/Abdomen 1 view CLINICAL HISTORY: R flank pain, stone flank pain COMPARISON STUDY: 11/09/2018 FINDINGS: The soft tissues, psoas shadows, renal outlines and intestinal gas pattern appear normal. T here is no evidence for bowel obstruction.. There are several stable left sided renal calcifications. IMPRESSION: Stable left renal nephrocalcinosis. Visibility of the urinary tract is moderately compro mised due to overlying bowel content. ACT 112: Negative or not required by law. The above report was generated using voice recognition software. It may contain grammatical, syntax or spelling errors. Electronically signed by: Ken Thayer M.D. 11/04/2019 6:52 PM
[2019-11-04 19:00] LABS: Albumin Globulin Ratio 0.8 (0.9-2); BUN Creatinine Ratio 7.5 (10-20); Bilirubin,Total 0.6 mg/dl (0.2-1); Calcium 8.9 mg/dl (8.5-10.1); Creatinine Clr Calc Pharmacy 94.2 ml/min; Est GFR (African American) 65.1; Est GFR (Non-African American) 56.2; Globulin 3.9 gm/dl (2.5-4.0); Potassium 3.9 mmol/L (3.5-5.1); Total Protein 6.9 gm/dl (6.4-8.2)
[2019-11-04 19:18] LABS: Appearance Urine Clear (Clear); Bacteria Urine Automated Negative (Negative); Bilirubin Urine Negative (Negative); Blood Urine 2+ (Negative); Color Urine Yellow; Glucose Urine UA Negative (Negative); Ketones Urine Negative (Negative); Leukocyte Esterase Urine Negative (Negative); Nitrite Urine Negative (Negative); Protein Urine Trace (Negative); Specific Gravity Urine 1.014 (1.000-1.030); Urobilinogen Urine Negative (Negative)
--- NOTE | 2019-11-04 19:33 | CT Scan Report ---
CT abd pelvis wo con CT DOSE: 1946.43 mGy.cm HISTORY: Flank pain R flank pain TECHNIQUE: Multiaxial CT images of the abdomen and pelvis were performed without contrast. A dose lo wering technique was utilized adhering to the principles of ALARA. COMPARISON STUDY: 11/06/2018 FINDINGS: Minimal dependent basilar atelectasis. Several small nonobstructing renal calcifications bi laterally. Moderate right renal hydronephrosis and hydroureter. Moderate right renal Significant infiltrative ch blank. 5 mm obstructing calculus mid right ureter. Bowel pattern overall again is nonobstructive. Bladder is midline. There are no contained bladder roshan cifications. There is no free fluid within the pelvic cul-de-sac. IMPRESSION: 1. 5 mm mid right ureteral obstructing calculus. 2. Moderate to rather significant right renal hydroureteronephrosis. 3. Moderate right perinephric infiltrative change. 4. Multiple additional nonobstructing renal calcifications bilaterally. ACT 112: Negative or not required by law. The above report was generated using voice recognition software. It may contain grammatical, syntax or spelling errors. Electronically signed by: Ken Thayer M.D. 11/04/2019 7:31 PM
--- NOTE | 2019-11-04 20:12 | Emergency Department Note ---
Entered by Shelbie Keane acting as a scribe for Radha Garcia MD History of Present Illness General Chief complaint: Kidney Stone Stated complaint: KIDNEY STONE Source: patient History of Present Illness Provider complaint: kidney stone Onset (ago): day(s) 1 Location: back and right Severity: similar to prior episodes Pain Consistency: + other (worsening) Maximum Pain Intensity: 10 Quality: + other (kidney stone) Associated symptoms: no fever/chills Treatments prior to arrival: other (Nasuea; Oxycodone; Zofran; Tylenol) The patient, who is a 34 year old male with a medical history of seizure, diabetes, TIA and acute kidney injury, presents to the Emergency Room with complaints of a kidney stone that was evaluated yesterday. The patient states that he has worsening right sided pain. The patient denies having a fever. The patient states that he has taken oxycodone, nausea medication, Zofran, and Tylenol that has not provided any relief. The patient confirms that he had a similar episode last year. Home Medications Home Medications Medication Instructions Recorded Confirmed Type atorvastatin 20 mg PO HS 11/06/18 11/04/19 History blood sugar diagnostic #100 ea 10/22/19 10/22/19 Rx blood sugar diagnostic #360 ea 10/22/19 10/22/19 Rx blood-glucose meter #1 ea 10/22/19 10/22/19 Rx lancets #102 ea 10/22/19 10/22/19 Rx lancets #306 ea 10/22/19 10/22/19 Rx tamsulosin [Flomax] 0.4 mg PO DAILY #7 cap 11/03/19 11/04/19 Rx Dexcom G6 Roller Hand #1 ea NS 11/04/19 11/04/19 Rx Dexcom G6 Sensor #3 ea NS 11/04/19 11/04/19 Rx Dexcom G6 Transmitter #1 ea NS 11/04/19 11/04/19 Rx insulin aspart U-100 [Novolog See Rx Instructions .ROUTE .COMPLEX 11/04/19 11/04/19 History U-100 Insulin aspart] ondansetron 4 mg PO Q8H PRN 11/04/19 11/04/19 History oxycodone 5 mg PO Q6H PRN 11/04/19 11/04/19 History Allergies Allergy/AdvReac Type Severity Reaction Status Date / Time No Known Allergies Allergy Verified 11/03/19 04:40 Past Med/Surg History Medical History Diabetes (Chronic) Hypoglycemia (Acute) Hypoglycemia associated with type 2 diabetes mellitus (Resolved) Hypokalemia (Acute) Kidney stones Post-ictal state (Acute) Renal colic (Acute) Right ureteral stone (Acute) Seizure (Acute) TIA (transient ischemic attack) (Resolved) Type 1 diabetes (Acute) Surgical History No significant past surgical history Social History Preferred Language: Latvian Communication Ability: Effective Risk Professional Required: No Beliefs That Will Affect Care: None marital status: Current Living Situation: Spouse and Family current occupational status: employed Feels Safe at Home: Yes Safety Concerns: Feels Safe At This Time Smoking Status: Never smoker Hx Alcohol Use: Yes Alcohol type: beer Hx Substance Use: No Review of Systems See HPI for pertinent positives & negatives. and A total of 10 systems reviewed and were otherwise negative Physical Exam Vital Signs Vital Signs - 24 hr 11/04/19 21:33 11/04/19 21:40 11/04/19 21:50 Temperature Temperature Source Pulse Rate 86 83 81 Pulse Rate [Left Brachial] Pulse Rate [Right Finger] Pulse Rate from SpO2 Sensor 86 83 80 Pulse Strength [Left Brachial] Respiratory Rate 19 18 19 Respiratory Effort / Characteristics Respiratory Depth Respiratory Pattern Blood Pressure Blood Pressure [Left Arm] Blood Pressure Mean Blood Pressure Mean [Left Arm] Blood Pressure Position [Left Arm] Pulse Oximetry 99 99 99 Oxygen Delivery Method 11/04/19 21:52 11/04/19 22:00 11/04/19 22:10 Temperature Temperature Source Pulse Rate 83 83 75 Pulse Rate [Left Brachial] Pulse Rate [Right Finger] Pulse Rate from SpO2 Sensor 84 84 Pulse Strength [Left Brachial] Respiratory Rate 20 22 15 Respiratory Effort / Characteristics Respiratory Depth Respiratory Pattern Blood Pressure 166/100 H 178/109 H Blood Pressure [Left Arm] Blood Pressure Mean 129 143 Blood Pressure Mean [Left Arm] Blood Pressure Position [Left Arm] Pulse Oximetry 100 100 Oxygen Delivery Method 11/04/19 22:30 11/04/19 22:51 11/04/19 23:50 Temperature 36.8 C Temperature Source Oral Pulse Rate Pulse Rate [Left Brachial] Pulse Rate [Right Finger] Pulse Rate from SpO2 Sensor Pulse Strength [Left Brachial] Respiratory Rate 16 Respiratory Effort / Characteristics Non-Labored Spontaneous Respiratory Depth Normal Respiratory Pattern Regular Blood Pressure Blood Pressure [Left Arm] 182/114 H 171/99 H Blood Pressure Mean Blood Pressure Mean [Left Arm] 136 123 Blood Pressure Position [Left Arm] Lying Pulse Oximetry 98 Oxygen Delivery Method Room Air Room Air 11/05/19 00:06 11/05/19 07:15 11/05/19 07:28 Temperature 36.4 C L 36.4 C L Temperature Source Oral Oral Pulse Rate Pulse Rate [Left Brachial] 72 76 Pulse Rate [Right Finger] 74 Pulse Rate from SpO2 Sensor Pulse Strength [Left Brachial] Normal Respiratory Rate 17 20 Respiratory Effort / Characteristics Respiratory Depth Respiratory Pattern Blood Pressure Blood Pressure [Left Arm] 163/89 H 173/81 H 181/99 H Blood Pressure Mean Blood Pressure Mean [Left Arm] 113 111 126 Blood Pressure Position [Left Arm] Lying Lying Lying Pulse Oximetry 99 97 Oxygen Delivery Method Room Air Vital signs reviewed. General: Well-appearing male, in some discomfort. HEENT: No scleral icterus, PERRLA, neck supple. Atraumatic. Cardiovascular: Regular rate and rhythm, no extra sounds. Pulmonary: Clear to auscultation bilaterally, normal work of breathing. Abdomen: Soft, nontender, nondistended, positive bowel sounds. Musculoskeletal: Atraumatic, no peripheral edema. Mild right CVA tenderness. Neurologic: Patient awake alert and oriented x 3 Skin: Warm, dry, no rash Course Course 1756: Past medical records reviewed. The patient was evaluated in room B3. A complete history and physical exam was performed. 1936: I reassessed the patient and updated him on his resutls. 1946: I reviewed the patient's case with Dr. High, Urology . He will evaluate the patient for further management. 2102: I reviewed the patient's case with Dr. Ridley, [facility] Hospitalist. He will evaluate the patient for further management. Consultations Consultation #1: I reviewed the patient's case with Dr. High, Urology . He will evaluate the patient for further management. Time: 19:47 Consultation #2: I reviewed the patient's case with Dr. Ridley, [facility] Hospitalist. He will evaluate the patient for further management. Time: 21:03 Administered Medications Atorvastatin Calcium (Lipitor) 20 mg PO HS GEOVANNA Stop: 12/05/19 20:59 Last Admin: 11/05/19 21:05 Dose: 20 mg Documented by: [id number] Hydromorphone HCl (Dilaudid) 1 mg IV Q3H PRN PRN Reason: Pain Stop: 11/18/19 22:49 Last Admin: 11/05/19 12:27 Dose: 1 mg Documented by: [id number] Admin: 11/05/19 09:26 Dose: 1 mg Documented by: [id number] Admin: 11/05/19 06:37 Dose: 1 mg Documented by: [id number] Ciprofloxacin (Cipro) 400 mg in 200 mls @ 100 mls/hr IV PREOP GEOVANNA; Protocol Stop: 11/06/19 05:59 Last Infusion: 11/05/19 17:08 Dose: 0 mls/hr Documented by: [id number] Admin: 11/05/19 14:20 Dose: 100 mls/hr Documented by: [id number] Ondansetron HCl (Zofran) 4 mg IV Q6H PRN PRN Reason: Nausea Stop: 12/04/19 22:49 Last Admin: 11/05/19 07:05 Dose: 4 mg Documented by: [id number] Admin: 11/05/19 00:23 Dose: 4 mg Documented by: [id number] Oxycodone HCl (Roxicodone Immediate Rel) 5 mg PO Q6H PRN PRN Reason: Pain, Severe Stop: 11/18/19 22:49 Last Admin: 11/04/19 23:58 Dose: 5 mg Documented by: [id number] Tamsulosin HCl (Flomax) 0.4 mg PO DAILY GEOVANNA Stop: 12/05/19 08:59 Last Admin: 11/05/19 07:52 Dose: Not Given Documented by: [id number] Zolpidem Tartrate (Ambien) 5 mg PO HS PRN PRN Reason: Sleep Stop: 12/04/19 22:49 Last Admin: 11/04/19 23:58 Dose: 5 mg Documented by: [id number] Discontinued Medications Hydromorphone HCl (Dilaudid) 0.5 mg IV NOW STA Stop: 11/04/19 17:59 Last Admin: 11/04/19 18:26 Dose: 0.5 mg Documented by: [id number] Hydromorphone HCl (Dilaudid) 0.5 mg IV NOW STA Stop: 11/04/19 19:03 Last Admin: 11/04/19 19:06 Dose: 0.5 mg Documented by: [id number] Hydromorphone HCl (Dilaudid) 0.5 mg IV Q1H PRN PRN Reason: Pain Stop: 11/18/19 21:27 Last Admin: 11/04/19 22:39 Dose: 0.5 mg Documented by: [id number] Admin: 11/04/19 21:31 Dose: 0.5 mg Documented by: [id number] Hydromorphone HCl (Dilaudid) 0.5 mg IV Q3H PRN PRN Reason: Pain Stop: 11/18/19 22:49 Last Admin: 11/05/19 01:57 Dose: 0.5 mg Documented by: [id number] Hydromorphone HCl (Dilaudid) Confirm Administered Dose 1 mg .ROUTE .STK-MED ONE Stop: 11/05/19 03:53 Last Admin: 11/05/19 03:53 Dose: 1 mg Documented by: [id number] Sodium Chloride (Nss 1000ml) 1,000 mls @ 999 mls/hr IV .Q1H1M [facility] Stop: 11/04/19 19:00 Last Infusion: 11/04/19 19:30 Dose: 0 mls/hr Documented by: [id number] Admin: 11/04/19 18:25 Dose: 999 mls/hr Documented by: [id number] Potassium Chloride/Sodium Chloride (Normal Saline W/20 Meq Kcl) 20 meq in 1,000 mls @ 125 mls/hr IV .Q8H [facility] Stop: 11/05/19 14:49 Last Infusion: 11/05/19 15:25 Dose: 0 mls/hr Documented by: [id number] Admin: 11/05/19 07:51 Dose: 125 mls/hr Documented by: [id number] Infusion: 11/05/19 07:51 Dose: 125 mls/hr Documented by: [id number] Admin: 11/04/19 23:55 Dose: 125 mls/hr Documented by: [id number] Magnesium Sulfate/Dextrose (Magnesium Sulfate / D5w) 1 gm in 100 mls @ 100 mls/hr IV Q1H GEOVANNA Stop: 11/05/19 11:59 Last Infusion: 11/05/19 13:11 Dose: 0 mls/hr Documented by: [id number] Admin: 11/05/19 11:26 Dose: 100 mls/hr Documented by: [id number] Infusion: 11/05/19 11:19 Dose: 100 mls/hr Documented by: [id number] Admin: 11/05/19 10:19 Dose: 100 mls/hr Documented by: [id number] Infusion: 11/05/19 10:07 Dose: 100 mls/hr Documented by: [id number] Admin: 11/05/19 09:07 Dose: 100 mls/hr Documented by: [id number] Insulin Aspart (Novolog Flexpen) 0 units SC Q6 GEOVANNA Stop: 12/05/19 00:00 Last Admin: 11/05/19 17:30 Dose: Not Given Documented by: [id number] Cosigned by: [id number] Admin: 11/05/19 12:59 Dose: Not Given Documented by: [id number] Admin: 11/05/19 06:20 Dose: Not Given Documented by: [id number] Cosigned by: [id number] Admin: 11/05/19 00:02 Dose: Not Given Documented by: [id number] Insulin Aspart (Novolog Insulin Pump) 1 ea N/A Q6 GEOVANNA; Protocol Stop: 12/05/19 05:59 Last Admin: 11/05/19 17:29 Dose: Not Given Documented by: [id number] Cosigned by: [id number] Admin: 11/05/19 13:00 Dose: 1 ea Documented by: [id number] Admin: 11/05/19 06:21 Dose: 1 ea Documented by: [id number] Cosigned by: [id number] Insulin Aspart (Novolog Per Unit) Confirm Administered Dose 5 units .ROUTE .STK- MED ONE Stop: 11/05/19 14:02 Last Admin: 11/05/19 17:07 Dose: Not Given Documented by: [id number] Insulin Aspart (Novolog Per Unit) 5 units SC NOW [facility] Stop: 11/05/19 14:04 Last Admin: 11/05/19 14:09 Dose: 5 units Documented by: [id number] Cosigned by: [id number] Iothalamate Meglumine (Cysto-Conray Ii) Confirm Administered Dose 250 ml .ROUTE .STK-MED ONE Stop: 11/05/19 14:08 Last Admin: 11/05/19 14:30 Dose: 10 ml Documented by: [id number] Labetalol HCl (Normodyne) 5 mg IV Q5M PRN PRN Reason: PACU Use-SBP>160 or DBP>100 Stop: 11/05/19 19:04 Last Admin: 11/05/19 14:44 Dose: 5 mg Documented by: [id number] Cosigned by: [id number] Metoprolol Tartrate (Lopressor) 5 mg IV NOW STA Stop: 11/05/19 14:01 Last Admin: 11/05/19 17:07 Dose: Not Given Documented by: [id number] Metoprolol Tartrate (Lopressor) 25 mg PO NOW STA Stop: 11/05/19 18:16 Last Admin: 11/05/19 18:42 Dose: 25 mg Documented by: [id number] Ondansetron HCl (Zofran) 4 mg IV NOW STA Stop: 11/04/19 17:59 Last Admin: 11/04/19 18:25 Dose: 4 mg Documented by: [id number] Medical Decision Making Differential Diagnosis Differential diagnosis: Etiologies such as renal colic, appendicitis, diverticulitis, mesenteric ischemia, aortic pathology, infections, inflammatory bowel disease, PUD, biliary pathology, UTI, as well as others were entertained. Medical Records Attestation: I reviewed the patient's medical records. Home Medications Current Medication List: was personally reviewed by me Laboratory Data Attestation: I reviewed the patient's lab results. Result diagrams: 11/05/19 05:28 11/05/19 05:28 Lab Results 11/04/19 11/04/19 11/04/19 Range/Units 18:27 18:27 19:08 WBC 11.80 H (4.8-10.8) K/uL RBC 4.67 L (4.7-6.1) M/uL Hgb 13.5 L (14.0-18.0) g/dL Hct 39.9 L (42-52) % MCV 85.4 (80-100) fL MCH 28.9 (25-34) pg MCHC 33.8 (32-36) g/dL RDW Std Deviation 39.6 (36.4-46.3) fL RDW Coeff of Jada 12.8 (11.5-14.5) % Plt Count 282 (130-400) K/uL MPV 10.0 (7.4-10.4) fL Immature Gran % (Auto) 0.2 % Neut % (Auto) 74.0 % Lymph % (Auto) 13.7 % Hendry % (Auto) 8.4 % Eos % (Auto) 3.2 % Baso % (Auto) 0.5 % Immature Gran # (Auto) 0.02 (0.00-0.02) K/uL Neut # (Auto) 8.73 H (1.4-6.5) K/uL Lymph # (Auto) 1.62 (1.2-3.4) K/uL Hendry # (Auto) 0.99 H (0.11-0.59) K/uL Eos # (Auto) 0.38 (0-0.5) K/uL Baso # (Auto) 0.06 (0-0.2) K/uL Sodium 138 (136-145) mmol/L Potassium 3.9 (3.5-5.1) mmol/L Chloride 105 (98-107) mmol/L Carbon Dioxide 27 (21-32) mmol/L Anion Gap 6.0 (3-11) BUN 12 (7-18) mg/dl Creatinine 1.59 H D (0.6-1.4) mg/dl Est Cr Clr Drug Dosing 94.2 ml/min Est GFR ( Amer) 65.1 Est GFR (Non-Af Amer) 56.2 BUN/Creatinine Ratio 7.5 L (10-20) Glucose 186 H (70-99) mg/dl POC Glucose (70-99) Calcium 8.9 (8.5-10.1) mg/dl Magnesium (1.8-2.4) mg/dl Total Bilirubin 0.6 (0.2-1) mg/dl Direct Bilirubin (0-0.2) mg/dl AST 19 (15-37) U/L ALT 26 (12-78) U/L Alkaline Phosphatase 133 H (45-117) U/L Total Protein 6.9 (6.4-8.2) gm/dl Albumin 3.0 L (3.4-5.0) gm/dl Globulin 3.9 (2.5-4.0) gm/dl Albumin/Globulin Ratio 0.8 L (0.9-2) Lipase 32 L (73-393) U/L Urine Color Yellow Urine Appearance Clear (Clear) Urine pH 5.0 (4.5-7.5) Ur Specific Ferdinand 1.014 (1.000-1.030) Urine Protein Trace H (Negative) Urine Glucose (UA) Negative (Negative) Urine Ketones Negative (Negative) Urine Blood 2+ H (Negative) Urine Nitrite Negative (Negative) Urine Bilirubin Negative (Negative) Urine Urobilinogen Negative (Negative) Ur Leukocyte Esterase Negative (Negative) Urine WBC (Auto) 1-5 (0-5) /hpf Urine RBC (Auto) 5-10 H (0-4) /hpf U Hyaline Cast (Auto) 1-5 (0-5) /lpf U Epithel Cells (Auto) 5-10 H (0-5) /lpf Urine Bacteria (Auto) Negative (Negative) 11/04/19 11/05/19 11/05/19 Range/Units 22:58 05:28 05:28 WBC 12.12 H (4.8-10.8) K/uL RBC 4.48 L (4.7-6.1) M/uL Hgb 12.9 L (14.0-18.0) g/dL Hct 38.4 L (42-52) % MCV 85.7 (80-100) fL MCH 28.8 (25-34) pg MCHC 33.6 (32-36) g/dL RDW Std Deviation 39.5 (36.4-46.3) fL RDW Coeff of Jada 12.6 (11.5-14.5) % Plt Count 278 (130-400) K/uL MPV 9.9 (7.4-10.4) fL Immature Gran % (Auto) 0.2 % Neut % (Auto) 77.5 % Lymph % (Auto) 10.6 % Hendry % (Auto) 9.3 % Eos % (Auto) 2.2 % Baso % (Auto) 0.2 % Immature Gran # (Auto) 0.03 H (0.00-0.02) K/uL Neut # (Auto) 9.37 H (1.4-6.5) K/uL Lymph # (Auto) 1.29 (1.2-3.4) K/uL Hendry # (Auto) 1.13 H (0.11-0.59) K/uL Eos # (Auto) 0.27 (0-0.5) K/uL Baso # (Auto) 0.03 (0-0.2) K/uL Sodium 140 (136-145) mmol/L Potassium 4.0 (3.5-5.1) mmol/L Chloride 109 H (98-107) mmol/L Carbon Dioxide 26 (21-32) mmol/L Anion Gap 5.0 (3-11) BUN 11 (7-18) mg/dl Creatinine 1.49 H (0.6-1.4) mg/dl Est Cr Clr Drug Dosing 102.1 ml/min Est GFR ( Amer) 70.5 Est GFR (Non-Af Amer) 60.8 BUN/Creatinine Ratio 7.4 L (10-20) Glucose 121 H (70-99) mg/dl POC Glucose 164 H (70-99) Calcium 8.8 (8.5-10.1) mg/dl Magnesium 1.5 L (1.8-2.4) mg/dl Total Bilirubin (0.2-1) mg/dl Direct Bilirubin (0-0.2) mg/dl AST (15-37) U/L ALT (12-78) U/L Alkaline Phosphatase (45-117) U/L Total Protein (6.4-8.2) gm/dl Albumin (3.4-5.0) gm/dl Globulin (2.5-4.0) gm/dl Albumin/Globulin Ratio (0.9-2) Lipase (73-393) U/L Urine Color Urine Appearance (Clear) Urine pH (4.5-7.5) Ur Specific Ferdinand (1.000-1.030) Urine Protein (Negative) Urine Glucose (UA) (Negative) Urine Ketones (Negative) Urine Blood (Negative) Urine Nitrite (Negative) Urine Bilirubin (Negative) Urine Urobilinogen (Negative) Ur Leukocyte Esterase (Negative) Urine WBC (Auto) (0-5) /hpf Urine RBC (Auto) (0-4) /hpf U Hyaline Cast (Auto) (0-5) /lpf U Epithel Cells (Auto) (0-5) /lpf Urine Bacteria (Auto) (Negative) 11/05/19 11/05/19 Range/Units 05:28 06:06 WBC (4.8-10.8) K/uL RBC (4.7-6.1) M/uL Hgb (14.0-18.0) g/dL Hct (42-52) % MCV (80-100) fL MCH (25-34) pg MCHC (32-36) g/dL RDW Std Deviation (36.4-46.3) fL RDW Coeff of Jada (11.5-14.5) % Plt Count (130-400) K/uL MPV (7.4-10.4) fL Immature Gran % (Auto) % Neut % (Auto) % Lymph % (Auto) % Hendry % (Auto) % Eos % (Auto) % Baso % (Auto) % Immature Gran # (Auto) (0.00-0.02) K/uL Neut # (Auto) (1.4-6.5) K/uL Lymph # (Auto) (1.2-3.4) K/uL Hendry # (Auto) (0.11-0.59) K/uL Eos # (Auto) (0-0.5) K/uL Baso # (Auto) (0-0.2) K/uL Sodium (136-145) mmol/L Potassium (3.5-5.1) mmol/L Chloride (98-107) mmol/L Carbon Dioxide (21-32) mmol/L Anion Gap (3-11) BUN (7-18) mg/dl Creatinine (0.6-1.4) mg/dl Est Cr Clr Drug Dosing ml/min Est GFR ( Amer) Est GFR (Non-Af Amer) BUN/Creatinine Ratio (10-20) Glucose (70-99) mg/dl POC Glucose 131 H (70-99) Calcium (8.5-10.1) mg/dl Magnesium (1.8-2.4) mg/dl Total Bilirubin 0.5 (0.2-1) mg/dl Direct Bilirubin < 0.1 (0-0.2) mg/dl AST 20 (15-37) U/L ALT 23 (12-78) U/L Alkaline Phosphatase 126 H (45-117) U/L Total Protein 6.5 (6.4-8.2) gm/dl Albumin 2.7 L (3.4-5.0) gm/dl Globulin (2.5-4.0) gm/dl Albumin/Globulin Ratio (0.9-2) Lipase (73-393) U/L Urine Color Urine Appearance (Clear) Urine pH (4.5-7.5) Ur Specific Ferdinand (1.000-1.030) Urine Protein (Negative) Urine Glucose (UA) (Negative) Urine Ketones (Negative) Urine Blood (Negative) Urine Nitrite (Negative) Urine Bilirubin (Negative) Urine Urobilinogen (Negative) Ur Leukocyte Esterase (Negative) Urine WBC (Auto) (0-5) /hpf Urine RBC (Auto) (0-4) /hpf U Hyaline Cast (Auto) (0-5) /lpf U Epithel Cells (Auto) (0-5) /lpf Urine Bacteria (Auto) (Negative) Imaging Data Radiologist's Impression: Radiology results as stated below per my review and the radiologist's interpretation: XR KUB/Abdomen 1 view CLINICAL HISTORY: R flank pain, stone flank pain COMPARISON STUDY: 11/09/2018 FINDINGS: The soft tissues, psoas shadows, renal outlines and intestinal gas pattern appear normal. There is no evidence for bowel obstruction.. There are several stable left sided renal calcifications. IMPRESSION: Stable left renal nephrocalcinosis. Visibility of the urinary tract is moderately compromised due to overlying bowel content. ACT 112: Negative or not required by law. The above report was generated using voice recognition software. It may contain grammatical, syntax or spelling errors. Electronically signed by: Ken Thayer M.D. 11/04/2019 6:[address] abd pelvis wo con CT DOSE: 1946.43 mGy.cm HISTORY: Flank pain R flank pain TECHNIQUE: Multiaxial CT images of the abdomen and pelvis were performed without contrast. A dose lowering technique was utilized adhering to the principles of ALARA. COMPARISON STUDY: 11/06/2018 FINDINGS: Minimal dependent basilar atelectasis. Several small nonobstructing renal calcifications bilaterally. Moderate right renal hydronephrosis and hydroureter. Moderate right renal Significant infiltrative change. 5 mm obstructing calculus mid right ureter. Bowel pattern overall again is nonobstructive. Bladder is midline. There are no contained bladder calcifications. There is no free fluid within the pelvic cul-de-sac. IMPRESSION: 1. 5 mm mid right ureteral obstructing calculus. 2. Moderate to rather significant right renal hydroureteronephrosis. 3. Moderate right perinephric infiltrative change. 4. Multiple additional nonobstructing renal calcifications bilaterally. ACT 112: Negative or not required by law. The above report was generated using voice recognition software. It may contain grammatical, syntax or spelling errors. Electronically signed by: Ken Thayer M.D. 11/04/2019 7:31 PM Blood Pressure Blood Pressure Findings: Elevated blood pressure Blood Pressure Disposition: further management by hospitalist MDM Narrative This patient was evaluated and appeared to be in in some discomfort. IV access was obtained and laboratory work was drawn. The patient was placed on the potline monitor. He was medicated with IV Dilaudid, IV Zofran and hydrated with normal saline solution. KUB was performed but unable to visualize the urinary tract due to overlying bowel gas. Follow-up CT scan of the abdomen and pelvis was performed and reveals an obstructing 5 mm mid ureteral right stone. Patient has failed outpatient management. Case was discussed with Dr. Ferrer of urology. Patient was also discussed with Dr. Ridley of the hospitalist service who will evaluate the patient for further management. Patient is aware of the plan and agrees. Impression & Plan Right ureteral stone, Renal colic, Type 1 diabetes Discharge Plan Visit Data *Final* Discharge Date/Time: 11/04/19 22:30 Chief Complaint: Kidney Stone Stated Complaint: KIDNEY STONE ED Provider: Radha Garcia Discharge Problem: Right ureteral stone, Renal colic, Type 1 diabetes Patient Disposition: Admitted As Inpatient Discharge Instructions Interventions: ED Discharge Assessment Last Done: 11/04/19 22:30 Discharge Problem: Type 1 diabetes Qualifiers: Diabetes mellitus complication status: with other specified complication Qualified Code(s): E10.69 - Type 1 diabetes mellitus with other specified complication The scribe's documentation has been prepared under my direction and personally reviewed by me in its entirety. I confirm that the note above accurately reflects all work, treatment, procedures, and medical decision making performed by me.
[2019-11-04] MEDS: HYDROmorphone INJ 0.5 MG/0.5 ML SYR IV PRN ×2 (21:31→22:39)
--- NOTE | 2019-11-04 21:43 | History & Physical Report ---
Date of Service November 04, 2019 Assessment & Plan (1) Right ureteral stone: 34 y/o M Hx DM I, HLD, nephrolithiasis. Presents with R flank pain x 2 days. The pt was in the ER one day prior and diagnosed with a R sided calculus. He was DCd with Flomax and oxycodone to f/u with urology. His pain has worsened since then. He denies fevers, rigors, dysuria. A CT of the abdomen demonstrated a 5 mm mid R ureteral calculus with significant R hydroureteronephrosis. 1) Obstructing calculus - IVF, Flomax, pain control - urology consult 2) HLD - cont statin 3) The pt's BP has been high in the ER - his pain is not controlled so this is difficult to assess - will trend for now and consider treatment if this persists Full code - SCDs Total time for this admit including review of labs, meds, imaging, records - discussion with pt and ER attending - 38 min History of Present Illness Chief Complaint: R flank pain - obstructing calculus Primary Care Provider: Itz Bustamante MD 34 y/o M Hx DM I, HLD, nephrolithiasis. Presents with R flank pain x 2 days. The pt was in the ER one day prior and diagnosed with a R sided calculus. He was DCd with Flomax and oxycodone to f/u with urology. His pain has worsened since then. He denies fevers, rigors, dysuria. A CT of the abdomen demonstrated a 5 mm mid R ureteral calculus with significant R hydroureteronephrosis. 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 Surgical: Has not previously had surgery Social: Does not smoke - drinks beer on weekends. 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 Family: Father due to ND age 56 Mother alive and well Allergies Allergy/AdvReac Type Severity Reaction Status Date / Time No Known Allergies Allergy Verified 11/03/19 04:40 Home Medications Home Medications Medication Instructions Recorded Confirmed Type atorvastatin 20 mg PO HS 11/06/18 11/04/19 History blood sugar diagnostic #100 ea 12/20/19 12/20/19 Rx blood sugar diagnostic #360 ea 10/22/19 10/22/19 Rx blood-glucose meter #1 ea 10/22/19 10/22/19 Rx lancets #102 ea 10/22/19 10/22/19 Rx lancets #306 ea 10/22/19 10/22/19 Rx tamsulosin [Flomax] 0.4 mg PO DAILY #7 cap 11/03/19 11/04/19 Rx Dexcom G6 Pararescue Craftsman #1 ea NS 11/04/19 11/04/19 Rx Dexcom G6 Sensor #3 ea NS 11/04/19 11/04/19 Rx Dexcom G6 Transmitter #1 ea NS 11/04/19 11/04/19 Rx insulin aspart U-100 [Novolog See Rx Instructions .ROUTE .COMPLEX 11/04/19 11/04/19 History U-100 Insulin aspart] ondansetron 4 mg PO Q8H PRN 11/04/19 11/04/19 History oxycodone 5 mg PO Q6H PRN 11/04/19 11/04/19 History Past Med/Surg History Social History Preferred Language: Divehi marital status: Current Living Situation: Spouse and Family current occupational status: employed Feels Safe at Home: Yes Smoking Status: Never smoker Hx Alcohol Use: Yes Review of Systems Review of Systems: Gen: Denies fevers, night sweats, rigors, fatigue, malaise, weight loss/gain ENT: Denies congestion, throat pain, hearing loss Eyes: Denies acute visual changes CV: Denies CP, palpitations Pulmonary: Denies SOB, cough, wheezing GI: Denies N/V, diarrhea, constipation : R flank pain - severe Neuro: Denies acute or unilateral weakness, acute gait impairment, headache or acute visual changes Musculoskeletal: Denies joint pain, inflammation Endocrine: Denies polydipsia, polyuria Skin: Denies acute rashes or ulcers Physical Exam Physical Exam: General: AAO x 3, no distress ENT: No erythema or exudates, no thrush Eyes: VIC, EOMI Head and neck: Normocephalic, atraumatic, No JVD, neck is supple. Chest/heart: Nontender, S1,2, RRR, no murmurs, no gallops Lungs: CTAB, no wheezing or crackles Abdomen: Nontender, nondistended, BS+ - there is R flank pain Neuro: AAO x 3, speech is clear, no unilateral weakness or loss of sensation, coordination intact Musculoskeletal: No joint inflammation, muscle tenderness, FROM Skin: No acute rashes or ulcers Extremities: No clubbing, cyanosis, edema Results & Data Vital Signs (Past 12 Hours) Vital Signs Temp Pulse Resp BP Pulse Ox 11/04/19 21:00 89 14 96 11/04/19 20:50 84 15 94 11/04/19 20:40 84 16 97 11/04/19 20:30 77 15 97 11/04/19 20:20 79 12 96 11/04/19 20:10 78 16 93 11/04/19 20:01 79 16 92 11/04/19 20:00 79 15 183/102 H 94 11/04/19 19:50 86 24 92 11/04/19 19:40 83 12 95 11/04/19 19:30 80 19 195/98 H 99 11/04/19 19:28 80 16 194/97 H 98 11/04/19 19:10 80 18 95 11/04/19 19:06 78 12 187/90 H 97 11/04/19 18:31 186/106 H 11/04/19 18:29 98 11/04/19 17:45 98.6 F 101 H 18 180/[address] abd: 1. 5 mm mid right ureteral obstructing calculus. 2. Moderate to rather significant right renal hydroureteronephrosis. 3. Moderate right perinephric infiltrative change. 4. Multiple additional nonobstructing renal calcifications bilaterally. PG Care Time/CCT Total # of Minutes Spent Total Time Spent with Patient: Total time spent is greater than 50% in coordination of care (as documented) at patient's floor/unit and/or counseling patient:
[2019-11-04] MEDS ORDERED: ALUMINUM/MAGNESIUM SUSP 30 ML UDC PO PRN (22:50)
[2019-11-04] MEDS ORDERED: MAGNESIUM HYDROXIDE SUSP 30 ML UDC PO PRN (22:50)
[2019-11-04] MEDS ORDERED: ACETAMINOPHEN 325 MG TAB PO PRN (22:50)
[2019-11-04] MEDS ORDERED: POLYETHYLENE (MIRALAX) 17 GM PACK PO PRN (22:50)
[2019-11-04] MEDS ORDERED: HYDROmorphone INJ 0.5 MG/0.5 ML SYR IV PRN (22:50)
[2019-11-04] MEDS ORDERED: ZOLPIDEM TARTRATE 5 MG TAB PO PRN (22:50)
[2019-11-04] MEDS: NSS + 20MEQ KCL 20 MEQ/1,000 ML BAG IV SCH (23:55)
[2019-11-04] MEDS: OXYCODONE HCL IR 5 MG TAB (IMMEDIATE RELEASE) PO PRN (23:58)
[2019-11-05] MEDS: INSULIN ASPART 100 UNITS/ML 3 ML PEN SC SCH ×4 (00:02→17:30)
[2019-11-05] MEDS: ONDANSETRON INJ 2 MG/ML 2 ML VIAL IV PRN ×2 (00:23→07:05)
[2019-11-05] MEDS ORDERED: NovoLOG INSULIN PUMP SCH (01:00)
[2019-11-05] MEDS ORDERED: GLUCAGON FOR INJ 1 MG VIAL SQ PRN (02:30)
[2019-11-05] MEDS ORDERED: GLUCOSE 10 TABS/TUBE PO PRN (02:30)
[2019-11-05] MEDS ORDERED: CARBOHYDRATES FOR HYPOGLYCEMIA PO PRN (02:30)
[2019-11-05] MEDS ORDERED: DEXTROSE 50% 50 ML SYRINGE IV PRN (02:30)
[2019-11-05] MEDS ORDERED: INSULIN ASPART 100 UNITS/ML VIAL SC PRN (02:30)
[2019-11-05] MEDS ORDERED: GLUCOSE 40% GEL 15 GM TUBE PO PRN (02:30)
[2019-11-05] MEDS ORDERED: HYDROmorphone INJ 1 MG/ML SYRINGE ONE (03:52)
[2019-11-05 05:56] LABS: Basophils # (auto) 0.03 K/uL (0-0.2); Basophils % (auto) 0.2 %; Eosinophils # (auto) 0.27 K/uL (0-0.5); Eosinophils % (auto) 2.2 %; Hematocrit (blood only) 38.4 % (42-52); Hemoglobin 12.9 g/dL (14.0-18.0); Immature Granulocytes # (auto) 0.03 K/uL (0.00-0.02); Immature Granulocytes % (auto) 0.2 %; Lymphocytes # (auto) 1.29 K/uL (1.2-3.4); Lymphocytes % (auto) 10.6 %; Mean Corpuscular Hemoglobin 28.8 pg (25-34); Mean Corpuscular Hgb Conc 33.6 g/dL (32-36); Mean Corpuscular Volume 85.7 fL (80-100); Mean Platelet Volume 9.9 fL (7.4-10.4); Monocytes # (auto) 1.13 K/uL (0.11-0.59); Monocytes % (auto) 9.3 %; Neutrophils # (auto) 9.37 K/uL (1.4-6.5); Neutrophils % (auto) 77.5 %; Platelet Count 278 K/uL (130-400); RDW Coefficient of Variation 12.6 % (11.5-14.5); RDW Standard Deviation 39.5 fL (36.4-46.3); Red Blood Count 4.48 M/uL (4.7-6.1); White Blood Count 12.12 K/uL (4.8-10.8)
[2019-11-05] MEDS ORDERED: CIPROFLOXACIN 400 MG/200 ML BAG IV SCH (06:00)
[2019-11-05] MEDS: NovoLOG INSULIN PUMP SCH ×3 (06:21→17:29)
[2019-11-05 06:24] LABS: BUN Creatinine Ratio 7.4 (10-20); Calcium 8.8 mg/dl (8.5-10.1); Creatinine Clr Calc Pharmacy 102.1 ml/min; Est GFR (African American) 70.5; Est GFR (Non-African American) 60.8; Magnesium 1.5 mg/dl (1.8-2.4)
[2019-11-05] MEDS: HYDROmorphone INJ 1 MG/ML SYRINGE IV PRN ×3 (06:37→12:27)
[2019-11-05] MEDS: NSS + 20MEQ KCL 20 MEQ/1,000 ML BAG IV SCH (07:51)
[2019-11-05] MEDS: TAMSULOSIN HCL 0.4 MG CAP PO SCH (07:52)
--- NOTE | 2019-11-05 08:32 | Urology Consultation ---
Date of Consultation November 05, 2019 Assessment & Plan (1) Right ureteral stone: 34 yo M admitted with right flank pain secondary to obstructing 5 mm mid right ureteral stone and MAURO. Imaging and lab work reviewed. Afebrile, nontoxic. Creatinine improved today with IV fluids. UA not suspicious for infection. Pt continues with moderate discomfort despite IV pain management as well as N/V. Discussed treatment options, including MET vs. ureteroscopy vs. ESWL, risks and benefits reviewed. R epeat KUB to check stone visibility. Repeat KUB reviewed, right ureteral stone not visualized. - Keep NPO - Strain all urine - Continue IV fluids Findings reviewed with Dr. Carmichael. Given his persistent right renal colic and MAURO in the context of an obstructing 5 mm mid right ureteral stone, will proceed with OR for cysto, Right retrograde pyelogram and Right stent placement, possible ureteroscopy, laser lithotripsy, stone basketing, possible ureteral dilation depending on findings. Risks and benefits to be reviewed with patient by Dr. Carmichael. OR notified. Preoperative CXR and EKG ordered. Will cover with IV Ciprofloxacin preoperatively. History of Present Illness Attending Physician: Tomer Weldon History of Present Illness 34 yo M with PMHx of diabetes, HLD, and nephrolithiasis admitted with right flank pain secondary to obstructing 5 mm mid right ureteral stone, MAURO, and hyperglycemia. New consult. Patient initially presented to [facility] ED on 11/03/19 with right flank pain and was diagnosed with nephrolithiasis. Pt declined admission. Returned to ED on 11/04/19 after failing outpatient management. Chart review: Renal ultrasound showed mild right-sided hydronephrosis, suspected obstructing right ureteral stone given history, no left-sided hydronephrosis, small calculi are noted on the right. CT abd/pelvis showed 5 mm mid right ureteral obstructing calculus, moderate to rather significant right renal hydroureteronephrosis, moderate right perinephric infiltrative change, and multiple additional nonobstructing renal calcifications bilaterally. KUB - ureteral stone not visualized due to bowel gas Afebrile since arrival Cr - 1.49, improved from 1.59 on admission WBC - 12.12 UA - 5-10 RBCs, negative nitrate, negative bacteria Patient lying flat in bed in moderate discomfort. C/o persistent right flank pain, requiring IV Dilaudid, which he states is providing minimal relief for short time period. Nausea and vomiting overnight. Afebrile. Denies hematuria, dysuria, urgency, or frequency. Patient has history of right nephrolithiasis. Has never followed with urology for stone disease. Reports spontaneous passage of right sided stone in the past, unsure of size. Last stone approximately 1 year ago. Allergies Allergy/AdvReac Type Severity Reaction Status Date / Time No Known Allergies Allergy Verified 11/03/19 04:40 Home Medications Home Medications Medication Instructions Recorded Confirmed Type atorvastatin 20 mg PO HS 11/06/18 11/04/19 History blood sugar diagnostic #100 ea 10/22/19 10/22/19 Rx blood sugar diagnostic #360 ea 10/22/19 10/22/19 Rx blood-glucose meter #1 ea 10/22/19 10/22/19 Rx lancets #102 ea 10/22/19 10/22/19 Rx lancets #306 ea 10/22/19 10/22/19 Rx tamsulosin [Flomax] 0.4 mg PO DAILY #7 cap 11/03/19 11/04/19 Rx Dexcom G6 Spin Table Operator #1 ea NS 11/04/19 11/04/19 Rx Dexcom G6 Sensor #3 ea NS 11/04/19 11/04/19 Rx Dexcom G6 Transmitter #1 ea NS 11/04/19 11/04/19 Rx insulin aspart U-100 [Novolog See Rx Instructions .ROUTE .COMPLEX 11/04/19 11/04/19 History U-100 Insulin aspart] ondansetron 4 mg PO Q8H PRN 11/04/19 11/04/19 History oxycodone 5 mg PO Q6H PRN 11/04/19 11/04/19 History Patient History Medical History Diabetes (Chronic) Hypoglycemia (Acute) Hypoglycemia associated with type 2 diabetes mellitus (Resolved) Hypokalemia (Acute) Kidney stones Post-ictal state (Acute) Renal colic (Acute) Right ureteral stone (Acute) Seizure (Acute) TIA (transient ischemic attack) (Resolved) Type 1 diabetes (Acute) Surgical History No significant past surgical history Social History Preferred Language: Vincentian Communication Ability: Effective Community Health Specialist Required: No Beliefs That Will Affect Care: None marital status: Current Living Situation: Spouse and Family current occupational status: employed Feels Safe at Home: Yes Safety Concerns: Feels Safe At This Time Smoking Status: Never smoker Hx Alcohol Use: Yes Alcohol type: beer Hx Substance Use: No Review of Systems Review of Systems: All systems reviewed & are unremarkable except as noted in HPI & below Physical Exam Physical Exam: Obese, appears uncomfortable, but no acute distress, nontoxic appearance Awake, AOx3 Normal respiratory effort Abd soft, nondistended, nontender No pedal edema Results & Data Vital Signs (Past 12 Hours) Vital Signs Temp Pulse Pulse Pulse Resp BP BP 11/05/19 07:28 36.4 C L 76 20 181/99 H 11/05/19 07:15 36.4 C L 74 17 173/81 H 11/05/19 00:06 72 163/89 H 11/04/19 23:50 171/99 H 11/04/19 22:51 36.8 C 16 182/114 H 11/04/19 22:10 75 15 11/04/19 22:00 83 22 178/109 H 11/04/19 21:52 83 20 166/100 H 11/04/19 21:50 81 19 11/04/19 21:40 83 18 11/04/19 21:33 86 19 11/04/19 21:20 81 14 11/04/19 21:10 83 13 11/04/19 21:00 89 14 11/04/19 20:50 84 15 11/04/19 20:40 84 16 Pulse Ox 11/05/19 07:28 97 11/05/19 07:15 99 11/05/19 00:06 11/04/19 23:50 11/04/19 22:51 98 11/04/19 22:10 11/04/19 22:00 100 11/04/19 21:52 100 11/04/19 21:50 99 11/04/19 21:40 99 11/04/19 21:33 99 11/04/19 21:20 96 11/04/19 21:10 95 11/04/19 21:00 96 11/04/19 20:50 94 01/02/20 20:40 97 PG Care Time/CCT Total # of Minutes Spent Total Time Spent with Patient: Total time spent is greater than 50% in coordination of care (as documented) at patient's floor/unit and/or counseling patient:
[2019-11-05] MEDS: MAGNESIUM SULFATE / D5W 1 GM/100 ML BAG IV SCH ×3 (09:07→11:26)
--- NOTE | 2019-11-05 09:15 | XRay Report ---
SINGLE VIEW CHEST CLINICAL HISTORY: Preoperative examination. FINDINGS: An AP, portable, upright chest radiograph is compared to study dated 05/30/2015. The examina tion is degraded by portable technique and apical lordotic positioning. The cardiomediastinal silhoue tte is unremarkable. The lungs and pleural spaces are clear. No pneumothorax is seen. The bony thorax is grossly intact. IMPRESSION: No active disease in the chest. ACT 112: Negative or not required by law. Electronically signed by: Guido Yuen M.D. 11/05/2019 9:14 AM
--- NOTE | 2019-11-05 09:18 | XRay Report ---
KUB CLINICAL HISTORY: right ureteral stone visibility COMPARISON STUDY: CT of the abdomen and pelvis November 04, 2019. FINDINGS: Left-sided renal calculi are noted. No definite ureteral calculi identified. A 5 mm density projects over the right hemipelvis. It's unclear whether this represents the ureteral calculus shown on CT. IMPRESSION: 1. No definite ureteral calculi visualized. 5 mm right pelvic density. Artifact is favored over a dis kyra ureteral calculus. 2. Left-sided nephrolithiasis. ACT 112: Negative or not required by law. Electronically signed by: Anurag Ambrosio M.D. 11/05/2019 9:17 AM
[2019-11-05] MEDS ORDERED: fentaNYL citrate 100 MCG/2 ML VIAL ONE (13:58)
[2019-11-05] MEDS ORDERED: LIDOCAINE HCL 2% 2 ML VIAL/AMP(20MG/ML) INFIL ONE (13:58)
[2019-11-05] MEDS ORDERED: MIDAZOLAM HCL 1 MG/ML 2ML VIAL ONE (13:58)
[2019-11-05] MEDS ORDERED: PROPOFOL IV EMULSION 10 MG/ML 20 ML VIAL IV ONE (13:58)
[2019-11-05] MEDS ORDERED: METOPROLOL TARTRATE 1 MG/ML VIAL IV STA ×2 (14:00→17:46)
--- NOTE | 2019-11-05 14:00 | Hospitalist Progress Note ---
Date of Service November 05, 2019 Assessment & Plan (1) Right ureteral stone: 34 y/o M Hx DM I, HLD, nephrolithiasis. Presents with R flank pain x 2 days. The pt was in the ER one day prior and diagnosed with a R sided calculus. He was DCd with Flomax and oxycodone to f/u with urology. His pain has worsened since then. He denies fevers, rigors, dysuria. A CT of the abdomen demonstrated a 5 mm mid R ureteral calculus with significant R hydroureteronephrosis. Repeat KUB this morning without stone visualization. 5mm RIGHT sided obstructing calculus - * IVF * Flomax * Strain all urine * pain control - * urology consult -- plan for OR this afternoon with Dr. Carmichael (2) Type 1 diabetes: * Dexcom 6 pump -- patient using own while admitted * Continue to monitor (3) Renal colic: * As above (4) Acute kidney injury: * Cr elevated to 1.59 on admission (was 1.9 in ER on 11/03) * Currently 1.49 with IVF * Continue to monitor (5) Hypertension: * Elevated at 185/103 -- likely secondary to pain * Continue to monitor * If continues to be elevated after pain resolution, would consider MEGAN/ARB given DM, however would need to monitor kidney function given MAURO from obstructing stone (6) DVT prophylaxis: * Low risk- encourage ambulation Dispo: discharge in AM, follow up with Urology Supervising Physician Co-Signing Physician Notes Attending attestation: Chart reviewed, care plan d/w JUS Brandon. I agree w/ the henderson components of her documentation. Pt will go to OR today by urology for intervention of kidney stone. IVF and pain control in meantime. Tomer Weldon MD Subjective Patient tearful, crying at bedside with family upon arrival to room. Patient states pain is 10/10 and located in his right flank region, and only relieved minimally with IV pain medications. States he was seen in the ER prior, and stated he wanted to be discharged and follow up outpatient. The pain persisted, which prompted him to return, and was found to have a 5mm obstructing stone. Repeat KUB did not visualize right ureteral stone, however given persistent pain, plan for OR this afternoon with Dr. Carmichael. Review of Systems Review of Systems: All systems reviewed & are unremarkable except as noted in HPI & below Constitutional: no fever and no chills Ear, Nose, Mouth, Throat: no sore throat and no dysphagia Respiratory: no cough and no dyspnea Cardiovascular: no chest pain, no palpitations and no edema Gastrointestinal: + abdominal pain and + nausea Genitourinary: + dysuria, + hematuria and + flank pain Neurologic: no numbness and no paresthesia Physical Exam Constitutional: WD/WN, vitals as above + acute distress; + uncomfortable Neck: trachea midline, no thyromegaly Respiratory: normal respiratory effort, lungs clear to auscultation Cardiovascular: Rate/Rhythm: regular rhythm and + tachycardic Heart Sounds: normal S1 and normal S2; no murmur Gastrointestinal (Abdomen): normal bowel sounds, soft, nontender, no hepatosplenomegaly Descom present Musculoskeletal: no cyanosis or clubbing, extremities motor strength 5/5 Skin: no rashes, warm and dry Neurologic: patellar DTR's 2+ bilat, sensation intact Genitourinary: + CVA tenderness Results & Data Vital Signs (Past 12 Hours) Vital Signs Temp Pulse Pulse Resp BP Pulse Ox 11/05/19 07:28 36.4 C L 76 20 181/99 H 97 11/05/19 07:15 36.4 C L 74 17 173/81 H 99 Laboratory Results 11/05/19 11/05/19 11/05/19 Range/Units 16:44 14:42 13:51 WBC (4.8-10.8) K/uL RBC (4.7-6.1) M/uL Hgb (14.0-18.0) g/dL Hct (42-52) % MCV (80-100) fL MCH (25-34) pg MCHC (32-36) g/dL RDW Std Deviation (36.4-46.3) fL RDW Coeff of Jada (11.5-14.5) % Plt Count (130-400) K/uL MPV (7.4-10.4) fL Immature Gran % (Auto) % Neut % (Auto) % Lymph % (Auto) % Candler % (Auto) % Eos % (Auto) % Baso % (Auto) % Immature Gran # (Auto) (0.00-0.02) K/uL Neut # (Auto) (1.4-6.5) K/uL Lymph # (Auto) (1.2-3.4) K/uL Candler # (Auto) (0.11-0.59) K/uL Eos # (Auto) (0-0.5) K/uL Baso # (Auto) (0-0.2) K/uL Sodium (136-145) mmol/L Potassium (3.5-5.1) mmol/L Chloride (98-107) mmol/L Carbon Dioxide (21-32) mmol/L Anion Gap (3-11) BUN (7-18) mg/dl Creatinine (0.6-1.4) mg/dl Est Cr Clr Drug Dosing ml/min Est GFR ( Amer) Est GFR (Non-Af Amer) BUN/Creatinine Ratio (10-20) Glucose (70-99) mg/dl POC Glucose 157 H 200 H 212 H (70-99) Calcium (8.5-10.1) mg/dl Magnesium (1.8-2.4) mg/dl Total Bilirubin (0.2-1) mg/dl AST (15-37) U/L ALT (12-78) U/L Alkaline Phosphatase (45-117) U/L Total Protein (6.4-8.2) gm/dl Albumin (3.4-5.0) gm/dl Globulin (2.5-4.0) gm/dl Albumin/Globulin Ratio (0.9-2) Lipase (73-393) U/L Urine Color Urine Appearance (Clear) Urine pH (4.5-7.5) Ur Specific Gurley (1.000-1.030) Urine Protein (Negative) Urine Glucose (UA) (Negative) Urine Ketones (Negative) Urine Blood (Negative) Urine Nitrite (Negative) Urine Bilirubin (Negative) Urine Urobilinogen (Negative) Ur Leukocyte Esterase (Negative) Urine WBC (Auto) (0-5) /hpf Urine RBC (Auto) (0-4) /hpf U Hyaline Cast (Auto) (0-5) /lpf U Epithel Cells (Auto) (0-5) /lpf Urine Bacteria (Auto) (Negative) 11/05/19 11/05/19 11/05/19 Range/Units 06:06 05:28 05:28 WBC 12.12 H (4.8-10.8) K/uL RBC 4.48 L (4.7-6.1) M/uL Hgb 12.9 L (14.0-18.0) g/dL Hct 38.4 L (42-52) % MCV 85.7 (80-100) fL MCH 28.8 (25-34) pg MCHC 33.6 (32-36) g/dL RDW Std Deviation 39.5 (36.4-46.3) fL RDW Coeff of Jada 12.6 (11.5-14.5) % Plt Count 278 (130-400) K/uL MPV 9.9 (7.4-10.4) fL Immature Gran % (Auto) 0.2 % Neut % (Auto) 77.5 % Lymph % (Auto) 10.6 % Candler % (Auto) 9.3 % Eos % (Auto) 2.2 % Baso % (Auto) 0.2 % Immature Gran # (Auto) 0.03 H (0.00-0.02) K/uL Neut # (Auto) 9.37 H (1.4-6.5) K/uL Lymph # (Auto) 1.29 (1.2-3.4) K/uL Candler # (Auto) 1.13 H (0.11-0.59) K/uL Eos # (Auto) 0.27 (0-0.5) K/uL Baso # (Auto) 0.03 (0-0.2) K/uL Sodium 140 (136-145) mmol/L Potassium 4.0 (3.5-5.1) mmol/L Chloride 109 H (98-107) mmol/L Carbon Dioxide 26 (21-32) mmol/L Anion Gap 5.0 (3-11) BUN 11 (7-18) mg/dl Creatinine 1.49 H (0.6-1.4) mg/dl Est Cr Clr Drug Dosing 102.1 ml/min Est GFR ( Amer) 70.5 Est GFR (Non-Af Amer) 60.8 BUN/Creatinine Ratio 7.4 L (10-20) Glucose 121 H (70-99) mg/dl POC Glucose 131 H (70-99) Calcium 8.8 (8.5-10.1) mg/dl Magnesium 1.5 L (1.8-2.4) mg/dl Total Bilirubin (0.2-1) mg/dl AST (15-37) U/L ALT (12-78) U/L Alkaline Phosphatase (45-117) U/L Total Protein (6.4-8.2) gm/dl Albumin (3.4-5.0) gm/dl Globulin (2.5-4.0) gm/dl Albumin/Globulin Ratio (0.9-2) Lipase (73-393) U/L Urine Color Urine Appearance (Clear) Urine pH (4.5-7.5) Ur Specific Gurley (1.000-1.030) Urine Protein (Negative) Urine Glucose (UA) (Negative) Urine Ketones (Negative) Urine Blood (Negative) Urine Nitrite (Negative) Urine Bilirubin (Negative) Urine Urobilinogen (Negative) Ur Leukocyte Esterase (Negative) Urine WBC (Auto) (0-5) /hpf Urine RBC (Auto) (0-4) /hpf U Hyaline Cast (Auto) (0-5) /lpf U Epithel Cells (Auto) (0-5) /lpf Urine Bacteria (Auto) (Negative) 11/04/19 11/04/19 11/04/19 Range/Units 22:58 19:08 18:27 WBC (4.8-10.8) K/uL RBC (4.7-6.1) M/uL Hgb (14.0-18.0) g/dL Hct (42-52) % MCV (80-100) fL MCH (25-34) pg MCHC (32-36) g/dL RDW Std Deviation (36.4-46.3) fL RDW Coeff of Jada (11.5-14.5) % Plt Count (130-400) K/uL MPV (7.4-10.4) fL Immature Gran % (Auto) % Neut % (Auto) % Lymph % (Auto) % Candler % (Auto) % Eos % (Auto) % Baso % (Auto) % Immature Gran # (Auto) (0.00-0.02) K/uL Neut # (Auto) (1.4-6.5) K/uL Lymph # (Auto) (1.2-3.4) K/uL Candler # (Auto) (0.11-0.59) K/uL Eos # (Auto) (0-0.5) K/uL Baso # (Auto) (0-0.2) K/uL Sodium 138 (136-145) mmol/L Potassium 3.9 (3.5-5.1) mmol/L Chloride 105 (98-107) mmol/L Carbon Dioxide 27 (21-32) mmol/L Anion Gap 6.0 (3-11) BUN 12 (7-18) mg/dl Creatinine 1.59 H D (0.6-1.4) mg/dl Est Cr Clr Drug Dosing 94.2 ml/min Est GFR ( Amer) 65.1 Est GFR (Non-Af Amer) 56.2 BUN/Creatinine Ratio 7.5 L (10-20) Glucose 186 H (70-99) mg/dl POC Glucose 164 H (70-99) Calcium 8.9 (8.5-10.1) mg/dl Magnesium (1.8-2.4) mg/dl Total Bilirubin 0.6 (0.2-1) mg/dl AST 19 (15-37) U/L ALT 26 (12-78) U/L Alkaline Phosphatase 133 H (45-117) U/L Total Protein 6.9 (6.4-8.2) gm/dl Albumin 3.0 L (3.4-5.0) gm/dl Globulin 3.9 (2.5-4.0) gm/dl Albumin/Globulin Ratio 0.8 L (0.9-2) Lipase 32 L (73-393) U/L Urine Color Yellow Urine Appearance Clear (Clear) Urine pH 5.0 (4.5-7.5) Ur Specific Gurley 1.014 (1.000-1.030) Urine Protein Trace H (Negative) Urine Glucose (UA) Negative (Negative) Urine Ketones Negative (Negative) Urine Blood 2+ H (Negative) Urine Nitrite Negative (Negative) Urine Bilirubin Negative (Negative) Urine Urobilinogen Negative (Negative) Ur Leukocyte Esterase Negative (Negative) Urine WBC (Auto) 1-5 (0-5) /hpf Urine RBC (Auto) 5-10 H (0-4) /hpf U Hyaline Cast (Auto) 1-5 (0-5) /lpf U Epithel Cells (Auto) 5-10 H (0-5) /lpf Urine Bacteria (Auto) Negative (Negative) 11/04/19 Range/Units 18:27 WBC 11.80 H (4.8-10.8) K/uL RBC 4.67 L (4.7-6.1) M/uL Hgb 13.5 L (14.0-18.0) g/dL Hct 39.9 L (42-52) % MCV 85.4 (80-100) fL MCH 28.9 (25-34) pg MCHC 33.8 (32-36) g/dL RDW Std Deviation 39.6 (36.4-46.3) fL RDW Coeff of Jada 12.8 (11.5-14.5) % Plt Count 282 (130-400) K/uL MPV 10.0 (7.4-10.4) fL Immature Gran % (Auto) 0.2 % Neut % (Auto) 74.0 % Lymph % (Auto) 13.7 % Candler % (Auto) 8.4 % Eos % (Auto) 3.2 % Baso % (Auto) 0.5 % Immature Gran # (Auto) 0.02 (0.00-0.02) K/uL Neut # (Auto) 8.73 H (1.4-6.5) K/uL Lymph # (Auto) 1.62 (1.2-3.4) K/uL Candler # (Auto) 0.99 H (0.11-0.59) K/uL Eos # (Auto) 0.38 (0-0.5) K/uL Baso # (Auto) 0.06 (0-0.2) K/uL Sodium (136-145) mmol/L Potassium (3.5-5.1) mmol/L Chloride (98-107) mmol/L Carbon Dioxide (21-32) mmol/L Anion Gap (3-11) BUN (7-18) mg/dl Creatinine (0.6-1.4) mg/dl Est Cr Clr Drug Dosing ml/min Est GFR ( Amer) Est GFR (Non-Af Amer) BUN/Creatinine Ratio (10-20) Glucose (70-99) mg/dl POC Glucose (70-99) Calcium (8.5-10.1) mg/dl Magnesium (1.8-2.4) mg/dl Total Bilirubin (0.2-1) mg/dl AST (15-37) U/L ALT (12-78) U/L Alkaline Phosphatase (45-117) U/L Total Protein (6.4-8.2) gm/dl Albumin (3.4-5.0) gm/dl Globulin (2.5-4.0) gm/dl Albumin/Globulin Ratio (0.9-2) Lipase (73-393) U/L Urine Color Urine Appearance (Clear) Urine pH (4.5-7.5) Ur Specific Gurley (1.000-1.030) Urine Protein (Negative) Urine Glucose (UA) (Negative) Urine Ketones (Negative) Urine Blood (Negative) Urine Nitrite (Negative) Urine Bilirubin (Negative) Urine Urobilinogen (Negative) Ur Leukocyte Esterase (Negative) Urine WBC (Auto) (0-5) /hpf Urine RBC (Auto) (0-4) /hpf U Hyaline Cast (Auto) (0-5) /lpf U Epithel Cells (Auto) (0-5) /lpf Urine Bacteria (Auto) (Negative) PG Care Time/CCT Total # of Minutes Spent Total Time Spent with Patient: Total time spent is greater than 50% in coordination of care (as documented) at patient's floor/unit and/or counseling patient: (1) Type 1 diabetes Diabetes mellitus complication status: with other specified complication Qualified Code(s): E10.69 - Type 1 diabetes mellitus with other specified complication
[2019-11-05] MEDS ORDERED: INSULIN ASPART PER UNIT ONE (14:01)
[2019-11-05] MEDS ORDERED: INSULIN ASPART PER UNIT SC STA (14:03)
[2019-11-05] MEDS ORDERED: MEPERIDINE HCL 25 MG/ML CARP IV PRN (14:04)
[2019-11-05] MEDS ORDERED: PHENYLEPHRINE 100MCG/ML 5ML SYR IV PRN (14:04)
[2019-11-05] MEDS ORDERED: HYDROmorphone INJ 1 MG/ML SYRINGE IV PRN (14:04)
[2019-11-05] MEDS ORDERED: ONDANSETRON INJ 2 MG/ML 2 ML VIAL IV PRN (14:04)
[2019-11-05] MEDS ORDERED: fentaNYL citrate 100 MCG/2 ML VIAL IV PRN (14:04)
[2019-11-05] MEDS ORDERED: ATROPINE SULFATE 0.1 MG/ML 10ML SYR IV PRN (14:04)
[2019-11-05] MEDS ORDERED: LABETALOL HCL IV 5 MG/ML 20ML IV PRN (14:04)
[2019-11-05] MEDS ORDERED: ePHEDrine sulfate 50 MG/ML AMP IV PRN (14:04)
[2019-11-05] MEDS ORDERED: IOTHALAMATE MEGLUMINE II 17.2% 250 ML VIAL ONE (14:07)
--- NOTE | 2019-11-05 14:07 | Anesthesiology Consultation ---
Date of Service November 05, 2019 Assessment & Plan (1) Encounter for pre-operative examination: Chart Review Chart Review: Acceptable Risk for Surgery and Patient NOT seen in Pre Admission Testing Consults Requested none History Surgery Operation Date: 11/05/19 12:20 Proposed Procedures p Cystoscopy, Right Retrograde, Right Stent Placement, Possible Ureteroscopy - Umair Carmichael MD Height/Weight Height: 6 ft Weight: 139.5 kg Allergies Allergy/AdvReac Type Severity Reaction Status Date / Time No Known Allergies Allergy Verified 11/03/19 04:40 Medications Home Medications Medication Instructions Recorded Confirmed Last Taken atorvastatin 20 mg PO HS 11/06/18 11/04/19 11/03/19 blood sugar diagnostic #100 ea 10/22/19 10/22/19 Unknown blood sugar diagnostic #360 ea 10/22/19 10/22/19 Unknown blood-glucose meter #1 ea 10/22/19 10/22/19 Unknown lancets #102 ea 10/22/19 10/22/19 Unknown lancets #306 ea 10/22/19 10/22/19 Unknown tamsulosin [Flomax] 0.4 mg PO DAILY #7 cap 11/03/19 11/04/19 Unknown Dexcom G6 Boiler Assistant Operator #1 ea NS 11/04/19 11/04/19 Unknown Dexcom G6 Sensor #3 ea NS 11/04/19 11/04/19 Unknown Dexcom G6 Transmitter #1 ea NS 11/04/19 11/04/19 Unknown insulin aspart U-100 [Novolog See Rx Instructions .ROUTE .COMPLEX 11/04/19 11/04/19 Unknown U-100 Insulin aspart] ondansetron 4 mg PO Q8H PRN 11/04/19 11/04/19 Unknown oxycodone 5 mg PO Q6H PRN 11/04/19 11/04/19 Unknown Active Medications Generic Name Dose Route Start Last Admin Trade Name Freq PRN Reason Stop Dose Admin Hydromorphone HCl 1 mg 11/05/19 03:34 11/05/19 12:27 Dilaudid IV 11/18/19 22:49 1 mg Q3H PRN Administration Pain Potassium Chloride/Sodium Chloride 20 meq in 1,000 mls @ 125 mls/hr 11/04/19 22:50 11/05/19 07:51 Normal Saline W/20 Meq Kcl IV 11/05/19 14:49 125 mls/hr .Q8H GEOVANNA Administration Insulin Aspart 0 units 11/05/19 00:00 11/05/19 12:59 Novolog Flexpen SC 12/05/19 00:00 Not Given Q6 GEOVANNA Insulin Aspart 1 ea 11/05/19 06:00 11/05/19 13:00 Novolog Insulin Pump N/A 12/05/19 05:59 1 ea Q6 GEOVANNA Administration Protocol Ondansetron HCl 4 mg 11/04/19 22:50 11/05/19 07:05 Zofran IV 12/04/19 22:49 4 mg Q6H PRN Administration Nausea Oxycodone HCl 5 mg 11/04/19 22:50 11/04/19 23:58 Roxicodone Immediate Rel PO 11/18/19 22:49 5 mg Q6H PRN Administration Pain, Severe Tamsulosin HCl 0.4 mg 11/05/19 09:00 11/05/19 07:52 Flomax PO 12/05/19 08:59 Not Given DAILY GEOVANNA Zolpidem Tartrate 5 mg 11/04/19 22:50 11/04/19 23:58 Ambien PO 12/04/19 22:49 5 mg HS PRN Administration Sleep NPO Date Last Intake of Fluids: 11/04/19 Time Last Intake of Fluids: 10:00 Date Last Intake of Solids: 11/04/19 Time Last Intake of Solids: 10:00 Past Medical History Medical History Diabetes (Chronic) Hypoglycemia (Acute) Hypoglycemia associated with type 2 diabetes mellitus (Resolved) Hypokalemia (Acute) Kidney stones Post-ictal state (Acute) Renal colic (Acute) Right ureteral stone (Acute) Seizure (Acute) TIA (transient ischemic attack) (Resolved) Type 1 diabetes (Acute) Past Surgical History Surgical History No significant past surgical history Social History Smoking Status: Never smoker Hx Alcohol Use: Yes Alcohol type: beer alcohol intake frequency: a few times a week Hx Substance Use: No Physical Exam Vital Signs Last Vital Signs Temp 37.1 C 11/05/19 13:50 Pulse 110 H 11/05/19 13:50 Resp 20 11/05/19 13:50 BP 185/103 H 11/05/19 13:50 Pulse Ox 98 11/05/19 13:50 Testing Laboratory Results 11/05/19 05:28 11/05/19 05:28 Urine Color Yellow 11/04/19 19:08 Urine Appearance Clear (Clear) 11/04/19 19:08 Urine pH 5.0 (4.5-7.5) 11/04/19 19:08 Ur Specific [place] 1.014 (1.000-1.030) 11/04/19 19:08 Urine Protein Trace (Negative) H 11/04/19 19:08 Urine Glucose (UA) Negative (Negative) 11/04/19 19:08 Urine Ketones Negative (Negative) 11/04/19 19:08 Urine Nitrite Negative (Negative) 11/04/19 19:08 Ur Leukocyte Esterase Negative (Negative) 11/04/19 19:08 Urine WBC (Auto) 1-5 /hpf (0-5) 11/04/19 19:08 Urine RBC (Auto) 5-10 /hpf (0-4) H 11/04/19 19:08 U Hyaline Cast (Auto) 1-5 /lpf (0-5) 11/04/19 19:08 U Epithel Cells (Auto) 5-10 /lpf (0-5) H 11/04/19 19:08 Urine Bacteria (Auto) Negative (Negative) 11/04/19 19:08 11/05/19 11/05/19 13:51 06:06 POC Glucose 212 H 131 H
--- NOTE | 2019-11-05 14:37 | Operative Report ---
PG Post Operative Report Pre & Post Diagnosis Operation Date: 11/05/19 12:20 Pre-Op Diagnosis: OBSTRUCTING CALCULUS on right with intractable renal colic Post-Op Diagnosis: OBSTRUCTING CALCULUS on right with intractable renal colic. Surgeon: Dr. Umair Carmichael. Anesthesia: Monitored anesthesia care with sedation. Drains left in place: 4.8 Haitian multilength right-sided ureteral stent. Specimen sent to pathology: None. EBL: None. Complications: None. Findings: Minimal dilation of right renal pelvis with good stent position on completion of case. I identified the patient and participated in the time-out.: Yes Procedure Operation Date: 11/05/19 12:20 Actual Procedures p Cystoscopy, Right Retrograde, Right Ureter Stent Placement(Right) - Umair Carmichael MD Brief history: Patient is a 34-year-old male with a right proximal ureteral stone, small in size but causing intractable colicky symptoms with persistent pain, need for parenteral pain medication, nausea and vomiting. Please see urology consultation and H&P for further details. He is being brought to the operating room for decompression with ureteral stent to manage his symptoms. Risks and benefits of intervention have been discussed the patient and his vocalized good understanding the treatment plan. Intravenous ciprofloxacin is used for antibiotic coverage. Consent reviewed preoperatively with patient today. Procedure: Patient was properly identified and brought into the operative suite after identification of appropriate consent in the chart. Monitored anesthesia care with sedation was initiated and patient was prepped and draped in the standard fashion for this procedure. Full timeout procedure was followed. 22 Haitian rigid cystoscope was introduced into the bladder under direct visualization demonstrating a normal urethra and minimally enlarged prostate gland without bladder neck elevation. Bladder was surveyed in its entirety demonstrated no intravesical lesions, papillary masses or calculi. Ureteral orifice ease were appreciated in the normal anatomic location bilaterally. Right-sided ureteral orifice was addressed using a 5 Haitian open-ended catheter and gentle retrograde pyelography was performed. This demonstrated a normal caliber ureter up to the level of the renal pelvis with relatively poor filling was appreciated. Sensor tip wire was easily advanced up to the level of the right kidney followed by a 4.8 Haitian multilength ureteral stent. Redundant coils in the upper pole and renal pelvis was appreciated with a full coil being present at the level of the bladder. Hydronephrotic drip of mildly cloudy urine with debris consistent with obstruction was present. Bladder was drained and cystoscope was removed. Anesthesia was reversed and patient was transferred to the recovery room in stable condition. Follow-up CARE: Patient could be readmitted to the floor for further management per the primary service. Should be stable for discharge home from a urologic perspective. Will arrange for outpatient follow-up for endoscopic management of the patient stone after period of stent dilation. Surgeon Umair Carmichael MD [employer] None Estimated Blood Loss 0 Findings Consistent with Post-Op Diagnosis Specimens None Description of Procedure As above I attest to the content of the Intraoperative Record and any orders documented therein. Any exceptions are noted below.
--- NOTE | 2019-11-05 14:58 | Fluoroscopy Report ---
FL retrograde includes kub CLINICAL HISTORY: RT CYSTO/LASER/STENT COMPARISON STUDY: None FLUOROSCOPY TIME: 23 seconds NUMBER OF FLUOROSCOPIC IMAGES: 7 FINDINGS: Image intensifier support was performed for right renal retrograde evaluation followed by s uccessful right ureteral stent placement. IMPRESSION: Right renal retrograde followed by successful right ureteral stent placement. ACT 112: Negative or not required by law. The above report was generated using voice recognition software. It may contain grammatical, syntax or spelling errors. Electronically signed by: Ken Thayer M.D. 11/05/2019 2:57 PM
--- NOTE | 2019-11-05 15:24 | Anesthesiology Progress Note ---
Date of Service November 05, 2019 Anesthesia Post Procedure Vital Signs Vital Signs: Temp Pulse Pulse Pulse Pulse Resp BP 11/05/19 15:00 37.1 C 105 H 16 11/05/19 14:50 105 H 17 11/05/19 14:40 37.3 C 111 H 16 11/05/19 13:50 37.1 C 110 H 20 11/05/19 07:28 36.4 C L 76 20 11/05/19 07:15 36.4 C L 74 17 11/05/19 00:06 72 11/04/19 23:50 11/04/19 22:51 36.8 C 16 11/04/19 22:10 75 15 11/04/19 22:00 83 22 178/109 H 11/04/19 21:52 83 20 166/100 H 11/04/19 21:50 81 19 11/04/19 21:40 83 18 11/04/19 21:33 86 19 11/04/19 21:20 81 14 11/04/19 21:10 83 13 11/04/19 21:00 89 14 11/04/19 20:50 84 15 11/04/19 20:40 84 16 11/04/19 20:30 77 15 11/04/19 20:20 79 12 11/04/19 20:10 78 16 11/04/19 20:01 79 16 11/04/19 20:00 79 15 183/102 H 11/04/19 19:50 86 24 11/04/19 19:40 83 12 11/04/19 19:30 80 19 195/98 H 11/04/19 19:28 80 16 194/97 H 11/04/19 19:10 80 18 11/04/19 19:06 78 12 187/90 H 11/04/19 18:31 186/106 H 11/04/19 18:29 11/04/19 17:45 37 C 101 H 18 180/98 H BP Pulse Ox 11/05/19 15:00 151/94 H 95 11/05/19 14:50 154/93 H 100 11/05/19 14:40 178/95 H 98 11/05/19 13:50 185/103 H 98 11/05/19 07:28 181/99 H 97 11/05/19 07:15 173/81 H 99 11/05/19 00:06 163/89 H 11/04/19 23:50 171/99 H 11/04/19 22:51 182/114 H 98 11/04/19 22:10 11/04/19 22:00 100 11/04/19 21:52 100 11/04/19 21:50 99 11/04/19 21:40 99 11/04/19 21:33 99 11/04/19 21:20 96 11/04/19 21:10 95 11/04/19 21:00 96 11/04/19 20:50 94 11/04/19 20:40 97 11/04/19 20:30 97 11/04/19 20:20 96 11/04/19 20:10 93 11/04/19 20:01 92 11/04/19 20:00 94 11/04/19 19:50 92 11/04/19 19:40 95 11/04/19 19:30 99 11/04/19 19:28 98 11/04/19 19:10 95 11/04/19 19:06 97 11/04/19 18:31 11/04/19 18:29 98 11/04/19 17:45 97 Pain Intensity Right Flank: Pain Intensity: 4 Transfer of Care Handoff Completed per policy Notes Mental Status: alert / awake / arousable Patient Amnestic to Procedure: Yes Nausea / Vomiting: adequately controlled Pain: adequately controlled Airway Patency, RR, SpO2: stable & adequate BP & HR: stable & adequate Hydration State: stable & adequate Anesthetic Complications: no major complications apparent and Pt Satisfied with anesthetic care
[2019-11-05] MEDS ORDERED: PHENAZOPYRIDINE HCL 200 MG TAB PO PRN (15:27)
[2019-11-05] MEDS ORDERED: METOPROLOL TARTRATE 25 MG TAB PO STA (18:15)
[2019-11-05 18:46] LABS: Alanine Aminotransferase 23 U/L (12-78); Albumin Level 2.7 gm/dl (3.4-5.0); Alkaline Phosphatase 126 U/L (45-117); Aspartate Aminotransferase 20 U/L (15-37); Bilirubin Direct < 0.1 mg/dl (0-0.2); Bilirubin,Total 0.5 mg/dl (0.2-1); Total Protein 6.5 gm/dl (6.4-8.2)
[2019-11-05] MEDS ORDERED: ATORVASTATIN 20 MG TAB PO SCH (21:00)
[2019-11-05] MEDS ORDERED: Nursing to Pharmacy Communication ONE (21:03)
[2019-11-05] MEDS: OXYCODONE HCL IR 5 MG TAB (IMMEDIATE RELEASE) PO PRN (23:42)
[2019-11-06 06:31] LABS: Hematocrit (blood only) 37.4 % (42-52); Hemoglobin 12.4 g/dL (14.0-18.0); Mean Corpuscular Hemoglobin 28.6 pg (25-34); Mean Corpuscular Hgb Conc 33.2 g/dL (32-36); Mean Corpuscular Volume 86.2 fL (80-100); Platelet Count 298 K/uL (130-400); RDW Coefficient of Variation 12.4 % (11.5-14.5); RDW Standard Deviation 39.9 fL (36.4-46.3); Red Blood Count 4.34 M/uL (4.7-6.1); White Blood Count 11.91 K/uL (4.8-10.8)
[2019-11-06 07:05] LABS: Albumin Level 2.7 gm/dl (3.4-5.0); BUN Creatinine Ratio 8.8 (10-20); Creatinine Clr Calc Pharmacy 107.1 ml/min; Est GFR (African American) 74.7; Est GFR (Non-African American) 64.4; Potassium 4.5 mmol/L (3.5-5.1)
[2019-11-06 07:07] LABS: Albumin Globulin Ratio 0.6 (0.9-2); Bilirubin,Total 0.9 mg/dl (0.2-1); Globulin 4.3 gm/dl (2.5-4.0)
[2019-11-06] MEDS ORDERED: INSULIN ASPART 100 UNITS/ML 3 ML PEN SC SCH (07:30)
[2019-11-06] MEDS ORDERED: NovoLOG INSULIN PUMP SCH (07:30)
--- NOTE | 2019-11-06 07:40 | Electrocardiogram Report ---
Test Reason : Blood Pressure : / mmHG Vent. Rate : 074 BPM Atrial Rate : 074 BPM P-R Int : 126 ms QRS Dur : 090 ms QT Int : 372 ms P-R-T Axes : 050 038 018 degrees QTc Int : 412 ms Normal sinus rhythm Normal ECG When compared with ECG of 30-MAY-2015 04:30, No significant change was found Confirmed by Chadwick Van ([id number]) on 11/06/2019 7:39:53 AM Referred By: REFERRED SELF Confirmed By:Burton Van
--- NOTE | 2019-11-06 08:41 | Discharge Summary ---
Date of Service November 06, 2019 Admission HPI Per Admitting Provider 34 y/o M Hx DM I, HLD, nephrolithiasis. Presents with R flank pain x 2 days. The pt was in the ER one day prior and diagnosed with a R sided calculus. He was DCd with Flomax and oxycodone to f/u with urology. His pain has worsened since then. He denies fevers, rigors, dysuria. A CT of the abdomen demonstrated a 5 mm mid R ureteral calculus with significant R hydroureteronephrosis. 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 Surgical: Has not previously had surgery Social: Does not smoke - drinks beer on weekends. 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 Chest/heart: Nontender, S1,2, RRR, no murmurs, no gallops Lungs: CTAB, no wheezing or crackles Abdomen: Nontender, nondistended, BS+ - there is R flank pain Neuro: AAO x 3, speech is clear, no unilateral weakness or loss of sensation, coordination intact Musculoskeletal: No joint inflammation, muscle tenderness, FROM Skin: No acute rashes or ulcers Extremities: No clubbing, cyanosis, edema Principal Diagnosis R Ureteral Stone with obstruction Discharge Exam Constitutional WD/WN, vitals as above Eyes + anicteric sclerae and PERRL Neck trachea midline, no thyromegaly Respiratory normal respiratory effort, lungs clear to auscultation Cardiovascular Rate/Rhythm: regular rhythm Heart Sounds: normal S1 and normal S2; no murmur Gastrointestinal (Abdomen) normal bowel sounds, soft, nontender, no hepatosplenomegaly Musculoskeletal no cyanosis or clubbing, extremities motor strength 5/5 Skin no rashes, warm and dry Neurologic patellar DTR's 2+ bilat, sensation intact Psychiatric A+Ox3, euthymic affect Genitourinary no CVA tenderness Lymphatic no cervical or axillary lymphadenopathy Discharge Data Allergies Allergy/AdvReac Type Severity Reaction Status Date / Time No Known Allergies Allergy Verified 11/03/19 04:40 Consultations 11/04/19 19:43 ED Decision to Admit Stat 11/04/19 19:47 Consult Urology Stat 11/04/19 22:50 Consult Urology Routine Procedures Performed Operation Date: 11/05/19 12:20 Actual Procedures p Cystoscopy, Right Retrograde, Right Ureter Stent Placement(Right) - Umair Carmichael MD Ordered Studies 11/04/19 19:03 CT abd pelvis wo con Stat 11/05/19 14:00 FL retrograde includes kub Routine 11/05/19 KUB 11/05/19 Retrograde Pyelogram Hospital Course (1) Right ureteral stone: * 34 y/o M Hx DM I, HLD, nephrolithiasis. Presents with R flank pain x 2 days. The pt was in the ER one day prior and diagnosed with a R sided calculus. He was DCd with Flomax and oxycodone to f/u with urology. His pain worsened since then which prompted return to the ER. A CT of the abdomen demonstrated a 5 mm mid R ureteral calculus with significant R hydroureteronephrosis. Repeat KUB without stone visualization. 5mm RIGHT sided obstructing calculus. * POD #1 s/p R cysto with stent with Dr. Carmichael on 11/05/19. Continued flomax, pain management prn. Follow up with PCP and Urology as outpatient. Per Urology, they will arrange outpatient ureteroscopy given inability to clearly visualize stones on KUB. They will allow 3-4 weeks of passive stent dilation prior to intervention. (2) Type 1 diabetes: * Dexcom 6 pump -- patient using own while admitted (3) Renal colic: * As above (4) Acute kidney injury: * Cr elevated to 1.59 on admission (was 1.9 in ER on 11/03) * Decreased to 1.42 prior to discharge. UO 1.00ml/kg/hr. * Repeat labs on Friday -- lab slip provided to patient (5) Hypertension: * Elevated at 150/90 prior to d/c -- likely secondary to pain/anxiety regarding wanting to leave early on day of discharge * If continues to be elevated after pain resolution and in the outpatient setting would consider MEGAN/ARB given DM, however outside of the setting of MAURO/stones. May benefit from BB. (6) DVT prophylaxis: * Low risk- encouraged ambulation during admission. Dispo: discharged home with . Follow up with Urology and PCP, Dr. Bustamante. Total Time Total Time Spent Total Time Spent (In Minutes): 60 Discharge Plan Discharge Items Patient Disposition: Home - Self-Care Reason For Visit: OBSTRUCTING CALCULUS Discharge Diagnosis: Right Kidney Stone Goals: You have been hospitalized for an urgent problem which required surgery. During your stay at [facility], we have made an effort to correct the problem that brought you to the hospital while keeping you as comfortable as possible. Surgery and medications were used to bring your condition under control and your discharge instructions will include directions for any medications you should take after leaving the hospital. Please make sure to fol low the advice of your surgeon regarding follow up with the surgeon and with your primary care provider. Activity: Resume your previous activity Non-emergency contact: Primary Care Provider Call non-emergency contact if: you have any medication questions, your symptoms worsen, your pain is not controlled and you have a fever Follow-up/Referrals: Umair Carmichael MD [Physician] - Felix Bustamante MD [Primary Care Provider] - Diet: Carb Count or DM1 and Heart Healthy Ambulatory Orders: Comprehensive Metabolic Panel (Routine) Timeframe: 3 Days Location: Determined by Patient Ordered By: Pamela Blanchard Attending Provider Instructions: You were admitted for a right sided kidney stone. Dr. Carmichael (Urology) performed a procedure and placed a stent to allow for passage of smaller fragments of stone so they do not block the flow from your kidney and cause more pain/complications. This stent will need to be removed by Dr. Carmichael's office. You should follow up with their office in the next week. Their office number is [phone]. Given the reoccurrence of stones and your history, it is recommended that you become established locally with a Urologist for preventative measures. Depending on the make-up of the stones you continue to have trouble with, it may be recommended that you avoid products high in calcium, avoid excessive iced tea, etc. There is also evidence that drinking lemonade helps to dissolve stones, but you will need to monitor your sugars closely. You should continue using the tamsulosin (Flomax) during this time. You may take pain medication as needed, but be cautious as this may worsen any constipation. You should follow up with your primary care provider in the next 3-5 days. As discussed, it may be beneficial to start a blood pressure medication if your pressures continue to remain elevated. You have been provided an order to obtain lab work on Friday. This will allow us to check on your kidney function, your electrolytes, as well as the number that was elevated concerning for relation to your gallbladder. If you have persistent pain or fever, as discussed, please return to the ER. Please return to the emergency room if you have worsening pain, fever, decreased appetite or for any symptoms that are concerning for you. It has been a pleasure being a part of the care team providing for you while you have been hospitalized. Take care! Pending Studies at Discharge: No Stand-Alone Forms: [facility], Work/School Release (Inpt) Medications and DC Order Prescriptions: Continued (DME) Accu-Chek Guide strip See Rx Instructions [id number] .MEDSUPPLY Qty: 100 RF: 5 (DME) lancets [Accu-Chek Fastclix Lancet Drum] misc See Rx Instructions .ROUTE .MEDSUPPLY Qty: 102 RF: 5 (DME) lancets [Accu-Chek Fastclix Lancet Drum] misc See Rx Instructions .ROUTE .MEDSUPPLY Qty: 306 RF: 3 (DME) blood-glucose meter [Accu-Chek Guide Glucose Meter] misc See Rx Instructions [id number] .MEDSUPPLY Qty: 1 RF: 0 (DME) Accu-Chek Guide strip See Rx Instructions [id number] .MEDSUPPLY Qty: 360 RF: 3 (DME) Dexcom G6 Chief Order Dispatcher misc See Rx Instructions .ROUTE .MEDSUPPLY Qty: 1 RF: 0 (DME) Dexcom G6 Sensor device See Rx Instructions .ROUTE .MEDSUPPLY Qty: 3 RF: 11 (DME) Dexcom G6 Transmitter device See Rx Instructions .ROUTE .MEDSUPPLY Qty: 1 RF: 3 tamsulosin [Flomax] 0.4 mg capsule 0.4 mg PO DAILY Qty: 7 RF: 0 atorvastatin 20 mg tablet 20 mg PO HS RF: 0 Novolog U-100 Insulin aspart 100 unit/mL solution See Rx Instructions .ROUTE .COMPLEX RF: 0 ondansetron 4 mg tablet,disintegrating 4 mg PO Q8H PRN (Reason: Nausea And Vomiting) RF: 0 oxycodone 5 mg tablet 5 mg PO Q6H PRN (Reason: Pain, Severe) RF: 0 Discharge Orders: Discharge Order (Routine); Ordered 11/06/19 Ordered By: Pamela Brandon Admission Data Admit Date/Time: 11/05/19 08:48 Attending Provider: Tomer Weldon Admit Provider: Pino Ridley Primary Care Provider: Felix Bustamante Other Providers: Pino Ridley ; Bridger High ; Johan Granda Other Interventions: Discharge Summary Assessment (RN) Last Done: 11/06/19 09:10 DC Date/Time DO NOT enter until pt leaves facility: 11/06/19 10:18
[2019-11-06] MEDS: TAMSULOSIN HCL 0.4 MG CAP PO SCH (09:01)
--- NOTE | 2019-11-06 09:01 | Urology Progress Note ---
Date of Service November 06, 2019 Assessment & Plan (1) Right ureteral stone: A/P 34 yo male POD#1 s/p R stent placement. Improved symptoms after stent placement. Will arrange for outpatient ureteroscopy seen inability to clearly visualize stones on KUB. Will allow 3-4 weeks of passive stent dilation prior to intervention. Plan reviewed, patient has our contact information. Worrisome signs and symptoms reviewed. Thank you for allowing us to participate in this patient's acute care. Please recall our service PRN new questions or concerns. (2) Renal colic: Subjective 34 yo male POD#1 s/p R stent placement. Colic and nausea improved, mild stent irritation especially when voiding. He has passed some small blood clots, not unexpected. present in room, DC home pending. No other complaints or issues. Review of Systems Constitutional: no fever and no chills Eyes: no diplopia Ear, Nose, Mouth, Throat: no ear trauma Respiratory: no hemoptysis Cardiovascular: no chest pain Gastrointestinal: no abdominal pain, no nausea and no vomiting Genitourinary: + hematuria Musculoskeletal: + back pain (stent related with voiding) Integumentary: no acne and no boil Neurologic: no paralysis Psychiatric: no hopelessness Endocrine: + fatigue Allergy / Immunological: no tongue swelling Physical Exam Constitutional: + obese; no acute distress Eyes: eyes not dysmorphic ENMT: Ears: no external ear abnormality Neck: trachea midline; no anterior neck swelling Respiratory: no respiratory distress and does not use accessory muscles Cardiovascular: Vessels: radial pulses present Gastrointestinal (Abdomen): Inspection/Auscultation: abdomen not distended Percussion/Palpation: abdomen soft; abdomen nontender Musculoskeletal: Head/Neck/Chest: normocephalic and neck supple Skin: normal turgor Neurologic: awake; not obtunded Psychiatric: Orientation: oriented x 3 Lymphatic: no lymphadenopathy Results & Data Vital Signs (Past 12 Hours) Vital Signs Temp Pulse Resp BP BP Pulse Ox 11/06/19 07:16 36.9 C 88 20 150/92 H 96 11/06/19 03:15 36.9 C 85 16 146/83 H 96 11/05/19 22:57 37.4 C 116 H 19 149/75 H 98 Laboratory Results Laboratory Results - last 48 hr 11/04/19 11/04/19 11/04/19 18:27 18:27 19:08 WBC 11.80 H RBC 4.67 L Hgb 13.5 L Hct 39.9 L MCV 85.4 MCH 28.9 MCHC 33.8 RDW Std Deviation 39.6 RDW Coeff of Jada 12.8 Plt Count 282 MPV 10.0 Immature Gran % (Auto) 0.2 Neut % (Auto) 74.0 Lymph % (Auto) 13.7 [place] % (Auto) 8.4 Eos % (Auto) 3.2 Baso % (Auto) 0.5 Immature Gran # (Auto) 0.02 Neut # (Auto) 8.73 H Lymph # (Auto) 1.62 [place] # (Auto) 0.99 H Eos # (Auto) 0.38 Baso # (Auto) 0.06 Sodium 138 Potassium 3.9 Chloride 105 Carbon Dioxide 27 Anion Gap 6.0 BUN 12 Creatinine 1.59 H D Est Cr Clr Drug Dosing 94.2 Est GFR ( Amer) 65.1 Est GFR (Non-Af Amer) 56.2 BUN/Creatinine Ratio 7.5 L Glucose 186 H POC Glucose Calcium 8.9 Magnesium Total Bilirubin 0.6 Direct Bilirubin AST 19 ALT 26 Alkaline Phosphatase 133 H Total Protein 6.9 Albumin 3.0 L Globulin 3.9 Albumin/Globulin Ratio 0.8 L Lipase 32 L Urine Color Yellow Urine Appearance Clear Urine pH 5.0 Ur Specific [place] 1.014 Urine Protein Trace H Urine Glucose (UA) Negative Urine Ketones Negative Urine Blood 2+ H Urine Nitrite Negative Urine Bilirubin Negative Urine Urobilinogen Negative Ur Leukocyte Esterase Negative Urine WBC (Auto) 1-5 Urine RBC (Auto) 5-10 H U Hyaline Cast (Auto) 1-5 U Epithel Cells (Auto) 5-10 H Urine Bacteria (Auto) Negative 11/04/19 11/05/19 11/05/19 22:58 05:28 05:28 WBC 12.12 H RBC 4.48 L Hgb 12.9 L Hct 38.4 L MCV 85.7 MCH 28.8 MCHC 33.6 RDW Std Deviation 39.5 RDW Coeff of Jada 12.6 Plt Count 278 MPV 9.9 Immature Gran % (Auto) 0.2 Neut % (Auto) 77.5 Lymph % (Auto) 10.6 [place] % (Auto) 9.3 Eos % (Auto) 2.2 Baso % (Auto) 0.2 Immature Gran # (Auto) 0.03 H Neut # (Auto) 9.37 H Lymph # (Auto) 1.29 [place] # (Auto) 1.13 H Eos # (Auto) 0.27 Baso # (Auto) 0.03 Sodium 140 Potassium 4.0 Chloride 109 H Carbon Dioxide 26 Anion Gap 5.0 BUN 11 Creatinine 1.49 H Est Cr Clr Drug Dosing 102.1 Est GFR ( Amer) 70.5 Est GFR (Non-Af Amer) 60.8 BUN/Creatinine Ratio 7.4 L Glucose 121 H POC Glucose 164 H Calcium 8.8 Magnesium 1.5 L Total Bilirubin Direct Bilirubin AST ALT Alkaline Phosphatase Total Protein Albumin Globulin Albumin/Globulin Ratio Lipase Urine Color Urine Appearance Urine pH Ur Specific [place] Urine Protein Urine Glucose (UA) Urine Ketones Urine Blood Urine Nitrite Urine Bilirubin Urine Urobilinogen Ur Leukocyte Esterase Urine WBC (Auto) Urine RBC (Auto) U Hyaline Cast (Auto) U Epithel Cells (Auto) Urine Bacteria (Auto) 11/05/19 11/05/19 11/05/19 05:28 06:06 12:13 WBC RBC Hgb Hct MCV MCH MCHC RDW Std Deviation RDW Coeff of Jada Plt Count MPV Immature Gran % (Auto) Neut % (Auto) Lymph % (Auto) [place] % (Auto) Eos % (Auto) Baso % (Auto) Immature Gran # (Auto) Neut # (Auto) Lymph # (Auto) [place] # (Auto) Eos # (Auto) Baso # (Auto) Sodium Potassium Chloride Carbon Dioxide Anion Gap BUN Creatinine Est Cr Clr Drug Dosing Est GFR ( Amer) Est GFR (Non-Af Amer) BUN/Creatinine Ratio Glucose POC Glucose 131 H 229 H Calcium Magnesium Total Bilirubin 0.5 Direct Bilirubin < 0.1 AST 20 ALT 23 Alkaline Phosphatase 126 H Total Protein 6.5 Albumin 2.7 L Globulin Albumin/Globulin Ratio Lipase Urine Color Urine Appearance Urine pH Ur Specific [place] Urine Protein Urine Glucose (UA) Urine Ketones Urine Blood Urine Nitrite Urine Bilirubin Urine Urobilinogen Ur Leukocyte Esterase Urine WBC (Auto) Urine RBC (Auto) U Hyaline Cast (Auto) U Epithel Cells (Auto) Urine Bacteria (Auto) 11/05/19 11/05/19 11/05/19 13:51 14:42 16:44 WBC RBC Hgb Hct MCV MCH MCHC RDW Std Deviation RDW Coeff of Jada Plt Count MPV Immature Gran % (Auto) Neut % (Auto) Lymph % (Auto) [place] % (Auto) Eos % (Auto) Baso % (Auto) Immature Gran # (Auto) Neut # (Auto) Lymph # (Auto) [place] # (Auto) Eos # (Auto) Baso # (Auto) Sodium Potassium Chloride Carbon Dioxide Anion Gap BUN Creatinine Est Cr Clr Drug Dosing Est GFR ( Amer) Est GFR (Non-Af Amer) BUN/Creatinine Ratio Glucose POC Glucose 212 H 200 H 157 H Calcium Magnesium Total Bilirubin Direct Bilirubin AST ALT Alkaline Phosphatase Total Protein Albumin Globulin Albumin/Globulin Ratio Lipase Urine Color Urine Appearance Urine pH Ur Specific [place] Urine Protein Urine Glucose (UA) Urine Ketones Urine Blood Urine Nitrite Urine Bilirubin Urine Urobilinogen Ur Leukocyte Esterase Urine WBC (Auto) Urine RBC (Auto) U Hyaline Cast (Auto) U Epithel Cells (Auto) Urine Bacteria (Auto) 11/05/19 11/05/19 11/06/19 20:50 20:52 06:11 WBC 11.91 H RBC 4.34 L Hgb 12.4 L Hct 37.4 L MCV 86.2 MCH 28.6 MCHC 33.2 RDW Std Deviation 39.9 RDW Coeff of Jada 12.4 Plt Count 298 MPV 10.0 Immature Gran % (Auto) Neut % (Auto) Lymph % (Auto) [place] % (Auto) Eos % (Auto) Baso % (Auto) Immature Gran # (Auto) Neut # (Auto) Lymph # (Auto) [place] # (Auto) Eos # (Auto) Baso # (Auto) Sodium Potassium Chloride Carbon Dioxide Anion Gap BUN Creatinine Est Cr Clr Drug Dosing Est GFR ( Amer) Est GFR (Non-Af Amer) BUN/Creatinine Ratio Glucose POC Glucose 346 H* 332 H* Calcium Magnesium Total Bilirubin Direct Bilirubin AST ALT Alkaline Phosphatase Total Protein Albumin Globulin Albumin/Globulin Ratio Lipase Urine Color Urine Appearance Urine pH Ur Specific [place] Urine Protein Urine Glucose (UA) Urine Ketones Urine Blood Urine Nitrite Urine Bilirubin Urine Urobilinogen Ur Leukocyte Esterase Urine WBC (Auto) Urine RBC (Auto) U Hyaline Cast (Auto) U Epithel Cells (Auto) Urine Bacteria (Auto) 11/06/19 11/06/19 06:11 08:12 WBC RBC Hgb Hct MCV MCH MCHC RDW Std Deviation RDW Coeff of Jada Plt Count MPV Immature Gran % (Auto) Neut % (Auto) Lymph % (Auto) [place] % (Auto) Eos % (Auto) Baso % (Auto) Immature Gran # (Auto) Neut # (Auto) Lymph # (Auto) [place] # (Auto) Eos # (Auto) Baso # (Auto) Sodium 138 Potassium 4.5 Chloride 105 Carbon Dioxide 30 Anion Gap 4.0 BUN 13 Creatinine 1.42 H Est Cr Clr Drug Dosing 107.1 Est GFR ( Amer) 74.7 Est GFR (Non-Af Amer) 64.4 BUN/Creatinine Ratio 8.8 L Glucose 166 H POC Glucose 101 H Calcium 9.0 Magnesium 2.0 Total Bilirubin 0.9 Direct Bilirubin AST 10 L ALT 19 Alkaline Phosphatase 131 H Total Protein 7.0 Albumin 2.7 L Globulin 4.3 H Albumin/Globulin Ratio 0.6 L Lipase Urine Color Urine Appearance Urine pH Ur Specific [place] Urine Protein Urine Glucose (UA) Urine Ketones Urine Blood Urine Nitrite Urine Bilirubin Urine Urobilinogen Ur Leukocyte Esterase Urine WBC (Auto) Urine RBC (Auto) U Hyaline Cast (Auto) U Epithel Cells (Auto) Urine Bacteria (Auto) PG Care Time/CCT Total # of Minutes Spent Total Time Spent with Patient: Total time spent is greater than 50% in coordination of care (as documented) at patient's floor/unit and/or counseling patient:
== END 2019-11-06 10:18 | disposition home or self-care (01) | DRG 661 ==
LOC: 3W 17:35 → ED 17:35 → SUATTDRO 21:48 → 3W 22:30